=== PATIENT | female | born 2000 | race Caucasian/White ===

== ENCOUNTER 2022-05-07 19:59 | Emergency (ER) | payer OTHER, SELFPAY ==
[2022-05-07] VITALS (9 sets, daily range): BP systolic 129–143; BP diastolic 81–87; PULSE 81–102; RESP 22; TEMP 36.6; O2SAT 95–99
--- NOTE | 2022-05-07 20:27 | ED_ITS ---
HPI - Nausea/Vomiting/Diarrhea General Chief complaint: Nausea/Vomiting/Diarrhea Stated complaint: acid reflux, vomiting four days Time Seen by Provider: 05/07/22 20:18 Source: patient Mode of arrival: Ambulatory History of Present Illness HPI Narrative: 21-year-old female nonsmoker with history of acid reflux and esophageal ulcers presents with a chief complaint of epigastric pain and nausea and vomiting for the past few days. She states her pain is across her upper abdomen and radiates to her back. She states it seems to be worse when she moves as well as eats. She has had poor appetite and multiple episodes of vomiting and feels weak, dizzy and lightheaded. She states she is felt this way in the past when her reflux is acting up. She states she is been taking her medications as prescribed and denies any dietary indiscretions. She is had no diarrhea or constipation denies dysuria, frequency or urgency. Related Data Allergies Allergy/AdvReac Type Severity Reaction Status Date / Time Penicillins Allergy Verified 05/07/22 20:17 Review of Systems Review of Systems Narrative: GENERAL: Denies chills, fatigue, malaise, fever, sweats. HEENT: Denies sinus pain, ear pain, sore throat, difficulty swallowing, dizziness. RESPIRATORY: Denies dyspnea, cough, wheezing, hemoptysis, sputum. CARDIOVASCULAR: Denies chest pain, palpitations, orthopnea, edema, GASTROINTESTINAL: See HPI : Denies dysuria, frequency, incontinence, hematuria, urinary retention. MUSCULOSKELETAL: denies weakness, joint pain, or bony pain SKIN: Denies rash, skin lesions, or other NEUROLOGIC: Denies weakness, headache, numbness, change in speech, confusion, seizures, incoordination. PSYCHIATRIC: No concerning psychosocial issues. 12 point review of systems is negative except for those stated above Patient History tobacco type: vaping Exam Narrative Exam Narrative: GENERAL: [21] year old patient appears stated age. Well-developed patient, in mild distress. HEAD: Atraumatic. Normocephalic. EYES: Pupils equal round and reactive. Extraocular motions intact. No scleral icterus. No injection or drainage. ENT: Nose without bleeding, purulent drainage. Throat without erythema, tonsillar hypertrophy or exudate. Airway patent. NECK: Trachea midline. Non tender CARDIOVASCULAR: Regular rate and rhythm without murmurs, gallops, or rubs. RESPIRATORY: Clear to auscultation. Breath sounds equal bilaterally. No wheezes, rales, or rhonchi. GASTROINTESTINAL: Abdomen soft, tender in the epigastrium, nondistended. EXTREMITIES: No edema or joint tenderness. BACK: Nontender without deformity or crepitance. No flank tenderness. NEURO: AOx3. SKIN: No rash or erythema of visible areas Initial Vital Signs Initial Vital Signs: Vital Signs Temperature 97.9 F 05/07/22 20:15 Pulse Rate 98 H 05/07/22 20:15 Respiratory Rate 22 05/07/22 20:15 Blood Pressure 143/87 H 05/07/22 20:15 Pulse Oximetry 98 05/07/22 20:15 Oxygen Delivery Method 05/07/22 20:15 Course Orders Ordered: ED Orders 05/07/22 20:50 Complete Blood Count AUTO DIFF Stat Comprehensive Metabolic Panel Stat Lipase Stat 05/07/22 21:32 US abdomen limited Stat 05/07/22 23:31 CT abdomen pelvis w con Stat 05/08/22 00:00 COVID19 -Nasal RAPID/Pre-Proc Stat Discontinued Medications Hydromorphone HCl (Hydromorphone 0.5 Mg Inj) 0.5 mg IV NOW ONE Stop: 05/07/22 21:11 Last Admin: 05/07/22 21:29 Dose: 0.5 mg Documented By: NR Hydromorphone HCl (Hydromorphone 0.5 Mg Inj) 0.5 mg IV NOW ONE Stop: 05/07/22 23:32 Last Admin: 05/07/22 23:34 Dose: 0.5 mg Documented By: LEO Sodium Chloride (Normal Saline 0.9%) 1,000 mls @ 1,000 mls/hr IV BOLUS ONE Stop: 05/07/22 22:09 Last Infusion: 05/07/22 23:09 Dose: 0 mls/hr Documented By: Admin: 05/07/22 21:30 Dose: 1,000 mls/hr Documented By: NR Ondansetron HCl (Ondansetron 4 Mg/2 Ml Inj) 4 mg IV NOW ONE Stop: 05/07/22 20:28 Last Admin: 05/07/22 20:49 Dose: 4 mg Documented By: NR Pantoprazole Sodium (Pantoprazole 40 Mg Vial) 40 mg IV NOW ONE Stop: 05/07/22 20:28 Last Admin: 05/07/22 20:49 Dose: 40 mg Documented By: NR Vital Signs Vital signs: Vital Signs - 8 hr 05/07/22 20:15 05/07/22 20:57 05/07/22 20:58 Temperature 97.9 F Pulse Rate 98 H 99 H 102 H Respiratory Rate 22 Blood Pressure 143/87 H Pulse Oximetry 98 99 99 Oxygen Delivery Method Room Air 05/07/22 20:58 05/07/22 21:00 05/07/22 21:30 Temperature Pulse Rate 100 H 91 H Respiratory Rate Blood Pressure 129/81 Pulse Oximetry 98 97 Oxygen Delivery Method 05/07/22 22:00 05/07/22 22:30 05/07/22 23:00 Temperature Pulse Rate 89 89 92 H Respiratory Rate Blood Pressure Pulse Oximetry 97 96 95 Oxygen Delivery Method 05/07/22 23:30 05/08/22 00:00 Temperature Pulse Rate 81 78 Respiratory Rate Blood Pressure Pulse Oximetry 97 93 Oxygen Delivery Method MDM - Nausea/Vomiting/Diarrhea Lab Data Result diagrams: 05/07/22 20:50 05/07/22 20:50 Labs: Lab Results 05/07/22 05/07/22 Range/Units 20:50 20:50 WBC 12.0 H (4.5-11.0) X10^3/uL RBC 4.49 (4.0-5.2) X10^6/uL Hgb 12.7 (12.0-16.0) g/dL Hct 38.9 (36-46) % MCV 86.7 (80-100) fL MCH 28.3 (26-34) PG MCHC 32.7 (30-36) % RDW 13.8 (11.6-14.8) % Plt Count 359 (150-400) X10^3/uL Neut % (Auto) 70.2 (50-75) % Lymph % (Auto) 22.3 L (25-40) % Hubbard % (Auto) 4.9 (3-14) % Eos % (Auto) 2.0 (2-4) % Baso % (Auto) 0.6 (0-2) % Neut # (Auto) 8400 H (0184-9845) /uL Lymph # (Auto) 2700 (9623-8970) /uL Hubbard # (Auto) 600 (0-900) /uL Eos # (Auto) 200 (0-450) /uL Baso # (Auto) 100 (0-100) /uL Sodium 137 (137-145) mmol/L Potassium 4.2 (3.4-5.1) mmol/L Chloride 105 (98-107) mmol/L Carbon Dioxide 24 (22-32) mmol/L BUN 10 (7-17) mg/dL Creatinine 0.59 (0.52-1.04) mg/dL Estimated GFR > 60 (>60) mL/min BUN/Creatinine Ratio 16.9 (6-22) Glucose 100 (70-100) mg/dL Calcium 8.9 (8.4-10.2) mg/dL Total Bilirubin 0.4 (0.2-1.3) mg/dL AST 77 H (14-36) IU/L ALT 44 H (<35) IU/L Alkaline Phosphatase 104 (38-126) U/L Total Protein 7.8 (6.3-8.2) g/dL Albumin 4.6 (3.5-5.0) g/dL Globulin 3.2 (1.7-4.1) g/dL Albumin/Globulin Ratio 1.4 (1.0-2.8) Lipase 93 (23-300) U/L Imaging Data CT scan - abdomen/pelvis: Radiologist's Impression: Close Abdomen/Pelvis CT (Signed) Sylvester Hernandez - 05/07/22 Abdomen Ultrasound (Signed) Sylvester Hernandez - 05/07/22 Launch?[place] [address] CT Scan Report Signed Patient: Donna Silva MR#: [id number] : 2000 Acct:[id number] Age/Sex: 21 / F Date of Service: 05/07/22 Loc: ED Accession Number: [id number] ?? Procedure: CT abdomen pelvis w con Ordering Provider: Santosh Moya D.O. PROCEDURE:? CT ABDOMEN PELVIS W CON ? INDICATIONS:? severe abdominal pain ? TECHNIQUE:? After the administration of intravenous contrast, axial sections acquired from the lung bases to the pubic symphysis.? Coronal and sagittal reformats were performed.? For radiation dose reduction, the following was used:? automated exposure control, adjustment of mA and/or kV according to patient size.? ? COMPARISON:? [facility], , US ABDOMEN LIMITED, 05/07/2022, 22:21. ? FINDINGS:? Image quality:? Excellent.? ? Lung bases:? Unremarkable. Heart:? No significant findings. ? ABDOMEN: Liver:? Hepatomegaly and severe hepatic steatosis is seen, no discrete hepatic lesion.. ? ? Gallbladder:? Unremarkable.? Biliary ducts:? Unremarkable.? ? Pancreas:? Unremarkable.? ? Spleen:? There is mild splenomegaly, no discrete splenic lesion..? ? Adrenal Glands:? Unremarkable.? ? Kidneys and Ureters:? No renal stones or hydronephrosis.? Small bilateral renal cortical cysts are seen measures up to 1 cm in size in midpole of left kidney. ? Stomach and Bowel:? There is no bowel obstruction.? No stomach or small bowel wall thickening.? Appendix is visualized and is normal in size and appearance.? Mild ascending colon wall thickening is seen.? No significant mesenteric fat stranding.? No abscess collection. Peritoneum:? No abnormal intraperitoneal fluid.? No free air.? ? Ventral Wall: ? Small umbilical hernia is seen containing fat only. Abdominal Nodes:? No retroperitoneal or mesenteric adenopathy by size criteria.? Small lymph nodes are seen scattered in right lower quadrant mesentery measures up to 7 mm in size. Vessels:? Aorta and inferior vena cava are normal in size.? ? PELVIS: Pelvic Organs:? Unremarkable.? ? Bladder:? Unremarkable.? ? Pelvic Nodes: No enlarged lymph nodes.? Miscellaneous: No hernias are seen. ? ? ? Bones:? There is no suspicious bony lesion.? No acute vertebral body compression fracture.? Degenerative disc disease at L5-S1 level is seen. ? ? IMPRESSION:? 1. Normal appendix.? Questionable ascending colon wall thickening, low-grade colitis cannot be excluded. 2. Mildly prominent mesenteric lymph nodes particularly in right lower quadrant abdomen which can be seen associated with mesenteric adenitis.? No abscess collection.? No free fluid or free air. 3.? Hepatosplenomegaly.? Moderate to severe hepatic steatosis, no discrete hepatic lesion. ? ? Dictated by: Sylvester Hernandez M.D. on 05/08/2022 at 0:07 ? ? Approved by: Sylvester Hernandez M.D. on 05/08/2022 at 0:13 ? US - abdomen: Radiologist's Impression: Close Abdomen/Pelvis CT (Signed) Sylvester Hernandez - 05/07/22 Abdomen Ultrasound (Signed) Sylvester Hernandez - 05/07/22 Launch?[facility] [address] [address] [address] Scan Report Signed Patient: Donna Silva MR#: [id number] : 2000 Acct:[id number] Age/Sex: 21 / F Date of Service: 05/07/22 Loc: ED Accession Number: [id number] ?? Procedure: CT abdomen pelvis w con Ordering Provider: Santosh Moya D.O. PROCEDURE:? CT ABDOMEN PELVIS W CON ? INDICATIONS:? severe abdominal pain ? TECHNIQUE:? After the administration of intravenous contrast, axial sections acquired from the lung bases to the pubic symphysis.? Coronal and sagittal reformats were performed.? For radiation dose reduction, the following was used:? automated exposure control, adjustment of mA and/or kV according to patient size.? ? COMPARISON:? [facility], , US ABDOMEN LIMITED, 05/07/2022, 22:21. ? FINDINGS:? Image quality:? Excellent.? ? Lung bases:? Unremarkable. Heart:? No significant findings. ? ABDOMEN: Liver:? Hepatomegaly and severe hepatic steatosis is seen, no discrete hepatic lesion.. ? ? Gallbladder:? Unremarkable.? Biliary ducts:? Unremarkable.? ? Pancreas:? Unremarkable.? ? Spleen:? There is mild splenomegaly, no discrete splenic lesion..? ? Adrenal Glands:? Unremarkable.? ? Kidneys and Ureters:? No renal stones or hydronephrosis.? Small bilateral renal cortical cysts are seen measures up to 1 cm in size in midpole of left kidney. ? Stomach and Bowel:? There is no bowel obstruction.? No stomach or small bowel wall thickening.? Appendix is visualized and is normal in size and appearance.? Mild ascending colon wall thickening is seen.? No significant mesenteric fat stranding.? No abscess collection. Peritoneum:? No abnormal intraperitoneal fluid.? No free air.? ? Ventral Wall: ? Small umbilical hernia is seen containing fat only. Abdominal Nodes:? No retroperitoneal or mesenteric adenopathy by size criteria.? Small lymph nodes are seen scattered in right lower quadrant mesentery measures up to 7 mm in size. Vessels:? Aorta and inferior vena cava are normal in size.? ? PELVIS: Pelvic Organs:? Unremarkable.? ? Bladder:? Unremarkable.? ? Pelvic Nodes: No enlarged lymph nodes.? Miscellaneous: No hernias are seen. ? ? ? Bones:? There is no suspicious bony lesion.? No acute vertebral body compression fracture.? Degenerative disc disease at L5-S1 level is seen. ? ? IMPRESSION:? 1. Normal appendix.? Questionable ascending colon wall thickening, low-grade colitis cannot be excluded. 2. Mildly prominent mesenteric lymph nodes particularly in right lower quadrant abdomen which can be seen associated with mesenteric adenitis.? No abscess collection.? No free fluid or free air. 3.? Hepatosplenomegaly.? Moderate to severe hepatic steatosis, no discrete hepatic lesion. ? ? Dictated by: Sylvester Hernandez M.D. on 05/08/2022 at 0:07 ? ? Approved by: Sylvester Hernandez M.D. on 05/08/2022 at 0:13 ? MDM Narrative Medical decision making narrative: Multiple etiologies for patient's symptoms considered include, but not limited to: [Pancreatitis versus gallbladder disease versus Bowel obstruction versus kidney stone versus diverticulitis versus other Patient's symptoms improved over duration of stay with above-stated therapies. History, physical exam, labs, imaging, and response to therapies have been reassuring. Findings and discharge diagnosis discussed with patient/family followed by verbalization of understanding Return precautions discussed with patient/family whom verbalize understanding. Pain has been well controlled and patient is tolerating oral hydration. Discharge Plan Departure Patient Disposition: Home Clinical Impression: Abdominal pain, Acute mesenteric adenitis Instructions: DI for Abdominal Pain-Adult Activity Restrictions/Additional Instructions: *You have been diagnosed with [abdominal pain likely due to mesenteric adenitis.] * As we discussed your history and physical exam as well as labs and imaging are very reassuring. There is no evidence of any severe diagnoses that would require a specific or immediate intervention. Specifically, there is no evidence of gallbladder disease, pancreatitis, bowel obstruction, etc. *What to do: *Please continue to take your regular medications as directed. [x ] New medication prescriptions sent to your pharmacy: [ ] *Please follow up with your primary care provider in 2-3 days, call for an appointment. Let them know you were seen in the Emergency Department and that we ask that you be seen in follow up. We will electronically transmit a record of today's note if your PCP is in our system *Please consider a clear liquid diet for the next 24-48 hours and then slowly advance to regular as tolerated. Also, try to avoid alcohol, nicotine, caffeine, spicy, acidic or fatty foods as this may worsen your symptoms *If you do not have a primary care provider please contact the [facility] Resource line at [phone]. They will ask some questions about your medical history and help get you set up with a doctor in the community. *Return to Emergency Department if you should have any new, worsening or concerning symptoms, such as [fever greater than 101 F, shaking chills, worsening pain, persistent vomiting or other bothersome symptoms]
[2022-05-07] MEDS: PANTOPRAZOLE 40 MG VIAL IV (20:49)
[2022-05-07] MEDS: ONDANSETRON 4 MG/2 ML INJ IV (20:49)
[2022-05-07 21:08] LABS: Add Manual Diff / Slide Review NO; Basophils Absolute Auto 100 /uL (0-100); Basophils Percent Auto 0.6 % (0-2); Eosinophils Absolute Auto 200 /uL (0-450); Hematocrit 38.9 % (36-46); Hemoglobin 12.7 g/dL (12.0-16.0); Lymphocytes Absolute Auto 2700 /uL (1100-4500); Lymphocytes Percent Auto 22.3 % (25-40); Mean Corpuscular HGB Conc 32.7 % (30-36); Mean Corpuscular Hemoglobin 28.3 PG (26-34); Mean Corpuscular Volume 86.7 fL (80-100); Monocytes Absolute Auto 600 /uL (0-900); Monocytes Percent Auto 4.9 % (3-14); Neutrophils Absolute Auto 8400 /uL (1500-7000); Neutrophils Percent Auto 70.2 % (50-75); Platelet Count 359 X10^3/uL (150-400); Red Blood Cell Count 4.49 X10^6/uL (4.0-5.2); Red Cell Distribution Width 13.8 % (11.6-14.8)
[2022-05-07 21:15] LABS: Albumin 4.6 g/dL (3.5-5.0)
[2022-05-07] MEDS: HYDROMORPHONE 0.5 MG INJ IV ×2 (21:29→23:34)
[2022-05-07] MEDS: SODIUM CHLORIDE 0.9% 1,000 ML 1000 ML IV (21:30)
[2022-05-07 21:31] LABS: Alanine Aminotransferase 44 IU/L (<35); Albumin Globulin Ratio 1.4 (1.0-2.8); Alkaline Phosphatase 104 U/L (38-126); Aspartate Aminotransferase 77 IU/L (14-36); BUN Creatinine Ratio 16.9 (6-22); Bilirubin Total 0.4 mg/dL (0.2-1.3); Blood Urea Nitrogen 10 mg/dL (7-17); Calcium 8.9 mg/dL (8.4-10.2); Carbon Dioxide 24 mmol/L (22-32); Chloride 105 mmol/L (98-107); Estimated Glomerular Filt Rate > 60 mL/min (>60); Globulin 3.2 g/dL (1.7-4.1); Glucose 100 mg/dL (70-100); HEMOLYSIS 17 (0-50); Lipase 93 U/L (23-300); Potassium 4.2 mmol/L (3.4-5.1); Sodium 137 mmol/L (137-145); Total Protein 7.8 g/dL (6.3-8.2)
--- NOTE | 2022-05-07 21:32 | DI.US.S_ITS ---
PROCEDURE: US ABDOMEN LIMITED INDICATIONS: severe epigastric pain, radiation to back TECHNIQUE: Real-time scanning was performed of the abdominal and retroperitoneal organs, with image documentation. COMPARISON: None. FINDINGS: Liver: Liver is enlarged and measures 22.6 cm in length. Diffusely increased liver parenchymal echotexture is seen. No discrete hepatic lesion. Gallbladder: There is no gallstone. No gallbladder wall thickening or pericholecystic fluid. No sonographic [place] sign. Biliary ducts: Intrahepatic bile ducts are non-dilated. Extrahepatic bile duct caliber measures 5.6 mm. Normal is 6-7 mm or less in diameter, or 10 mm or less post-cholecystectomy. Pancreas: Visualized portions of the pancreas are sonographically normal. IMPRESSION: Normal appearing gallbladder. No cholelithiasis or acute cholecystitis. No biliary ductal dilatation. Hepatomegaly and hepatic steatosis. No discrete hepatic lesion. Dictated by: Sylvester Hernandez M.D. on 05/07/2022 at 23:12 Approved by: Sylvester Hernandez M.D. on 05/07/2022 at 23:14
--- NOTE | 2022-05-07 23:31 | DI.CT.S_ITS ---
PROCEDURE: CT ABDOMEN PELVIS W CON INDICATIONS: severe abdominal pain TECHNIQUE: After the administration of intravenous contrast, axial sections acquired from the lung bases to the pubic symphysis. Coronal and sagittal reformats were performed. For radiation dose reduction, the following was used: automated exposure control, adjustment of mA and/or kV according to patient size. COMPARISON: [facility], , US ABDOMEN LIMITED, 05/07/2022, 22:21. FINDINGS: Image quality: Excellent. Lung bases: Unremarkable. Heart: No significant findings. ABDOMEN: Liver: Hepatomegaly and severe hepatic steatosis is seen, no discrete hepatic lesion.. Gallbladder: Unremarkable. Biliary ducts: Unremarkable. Pancreas: Unremarkable. Spleen: There is mild splenomegaly, no discrete splenic lesion.. Adrenal Glands: Unremarkable. Kidneys and Ureters: No renal stones or hydronephrosis. Small bilateral renal cortical cysts are seen measures up to 1 cm in size in midpole of left kidney. Stomach and Bowel: There is no bowel obstruction. No stomach or small bowel wall thickening. Appendix is visualized and is normal in size and appearance. Mild ascending colon wall thickening is seen. No significant mesenteric fat stranding. No abscess collection. Peritoneum: No abnormal intraperitoneal fluid. No free air. Ventral Wall: Small umbilical hernia is seen containing fat only. Abdominal Nodes: No retroperitoneal or mesenteric adenopathy by size criteria. Small lymph nodes are seen scattered in right lower quadrant mesentery measures up to 7 mm in size. Vessels: Aorta and inferior vena cava are normal in size. PELVIS: Pelvic Organs: Unremarkable. Bladder: Unremarkable. Pelvic Nodes: No enlarged lymph nodes. Miscellaneous: No hernias are seen. Bones: There is no suspicious bony lesion. No acute vertebral body compression fracture. Degenerative disc disease at L5-S1 level is seen. IMPRESSION: 1. Normal appendix. Questionable ascending colon wall thickening, low-grade colitis cannot be excluded. 2. Mildly prominent mesenteric lymph nodes particularly in right lower quadrant abdomen which can be seen associated with mesenteric adenitis. No abscess collection. No free fluid or free air. 3. Hepatosplenomegaly. Moderate to severe hepatic steatosis, no discrete hepatic lesion. Dictated by: Sylvester Hernandez M.D. on 05/08/2022 at 0:07 Approved by: Sylvester Hernandez M.D. on 05/08/2022 at 0:13
[2022-05-08] VITALS: PULSE 78; O2SAT 93
[2022-05-08 00:27] LABS: COVID19 -Nasal RAPID Negative (Negative)
[2022-05-08] MEDS: ONDANSETRON 4 MG ODT PREPACK 1 BOTTLE MISC (00:45)
[2022-05-08] MEDS: HYDROCODONE/ACET 5/325 PREPACK 1 BOTTLE MISC (00:45)
== END 2022-05-08 00:43 | disposition home or self-care (01) ==
PROVIDERS: Emergency Provider Emergency Medicine
DX: R10.13 Epigastric pain (principal); I88.0 Nonspecific mesenteric lymphadenitis; R11.2 Nausea with vomiting, unspecified; Z20.822 Contact with and (suspected) exposure to COVID-19
CPT/HCPCS: 36415; 74177; 76705; 80053; 83690; 85025; 87635; 96361; 96374; 96375; 96376; 99284; C9803; C9113; J1170; J2405; Q9967

== ENCOUNTER 2022-05-14 09:22 | Emergency (ER) | payer OTHER, SELFPAY ==
[2022-05-14] VITALS (13 sets, daily range): BP systolic 95–135; BP diastolic 57–102; PULSE 68–94; RESP 16–23; TEMP 36.7; O2SAT 92–97
[2022-05-14 09:55] LABS: Add Manual Diff / Slide Review NO; Basophils Absolute Auto 0 /uL (0-100); Basophils Percent Auto 0.5 % (0-2); Eosinophils Absolute Auto 100 /uL (0-450); Eosinophils Percent Auto 1.8 % (2-4); Hematocrit 36.7 % (36-46); Hemoglobin 12.4 g/dL (12.0-16.0); Lymphocytes Absolute Auto 1900 /uL (1100-4500); Lymphocytes Percent Auto 22.5 % (25-40); Mean Corpuscular HGB Conc 33.7 % (30-36); Mean Corpuscular Hemoglobin 29.2 PG (26-34); Mean Corpuscular Volume 86.6 fL (80-100); Monocytes Absolute Auto 500 /uL (0-900); Monocytes Percent Auto 6.4 % (3-14); Neutrophils Absolute Auto 5800 /uL (1500-7000); Neutrophils Percent Auto 68.8 % (50-75); Platelet Count 304 X10^3/uL (150-400); Red Blood Cell Count 4.24 X10^6/uL (4.0-5.2); Red Cell Distribution Width 13.3 % (11.6-14.8); White Blood Cell Count 8.4 X10^3/uL (4.5-11.0)
--- NOTE | 2022-05-14 10:02 | ED_ITS ---
HPI - Abdominal Pain General Chief Complaint: Abdominal Pain Stated Complaint: Abd pain Time Seen by Provider: 05/14/22 09:34 Source: patient and EMS Mode of arrival: EMS History of Present Illness HPI narrative: Patient is a 21-year-old female with history of depression anxiety presenting today with suprapubic pain. She was here and evaluated on 05/07/2022 when she had some epigastric pain. At that time she was diagnosed with mesenteric adenitis with normal blood work. She was discharged home and was doing okay until this morning when she had sudden onset of suprapubic pain. She says it radiates from her suprapubic area up to her chest. She sometimes gets short of breath but is not right now. She no longer has chest pain. She is complaining of severe pain. She denies painful or frequent urination. No abnormal vaginal discharge. No significant vaginal bleeding. She was given morphine with EMS and is feeling slightly better. She denies any flank pain or radiation. No epigastric or right upper quadrant pain. Related Data Previous Rx's Medication Instructions Recorded hydrocodone 5 mg-acetaminophen 325 1 tab PO Q4-6H PRN pain #10 tabs 05/08/22 mg tablet ondansetron 4 mg disintegrating 4 mg PO TID-QID PRN nausea and 05/08/22 tablet vomiting #10 tabs Allergies Allergy/AdvReac Type Severity Reaction Status Date / Time amoxicillin Allergy Verified 05/14/22 09:37 bismuth subsalicylate Allergy Verified 05/14/22 09:37 [From Maalox Total Relief (bismuth)] cinnamon Allergy Verified 05/14/22 09:37 Penicillins Allergy Verified 05/07/22 20:17 Review of Systems Review of Systems Narrative: GENERAL: Denies chills, fatigue, malaise, fever, sweats, travel HEENT: Denies sinus pain, ear pain, sore throat, difficulty swallowing, neck pain RESPIRATORY: Denies dyspnea, cough, wheezing, hemoptysis, sputum. CARDIOVASCULAR: Denies chest pain, palpitations, orthopnea, edema GASTROINTESTINAL: See HPI : Denies dysuria, frequency, incontinence, hematuria, urinary retention, flank pain. MUSCULOSKELETAL: Denies weakness, joint pain, or bony pain SKIN: No rash, no erythema, no pruritus NEUROLOGIC: Denies weakness, dizziness, headache, numbness, change in speech, confusion PSYCHIATRIC: No concerning psychosocial issues. 12 point review of systems is negative except for those stated above and HPI Patient History Social History Smoking Status: Former smoker Smoking Status: Former smoker tobacco type: vaping alcohol intake frequency: holidays/special occasions only Substance Use Type: marijuana Exam Initial Vital Signs Initial Vital Signs: Vital Signs Pulse Rate 94 H 05/14/22 09:24 Pulse Oximetry 96 05/14/22 09:24 GENERAL: Obese 21-year-old female and in no acute distress. HEENT: Head atraumatic,EOMI, pupils reactive, face symmetric, moist mucous membranes CARDIOVASCULAR: Regular rate and rhythm without murmurs, rubs or gallops. RESPIRATORY: Breath sounds equal bilaterally, no wheezes rales or rhonchi. ABDOMEN: Soft, suprapubic pain no guarding no rebound no epigastric pain no right upper quadrant : No CVA tenderness EXTREMITIES: Normal range of motion, no clubbing or edema. Neurovascularly intact NEUROLOGICAL: Alert and oriented x4.Normal gait and speech. SKIN: Warm, dry, no laceration, no petechiae, no rashes or lesions. Course Orders Ordered: ED Orders 05/14/22 09:33 EKG-12 Lead Stat 05/14/22 09:45 Complete Blood Count AUTO DIFF Stat Comprehensive Metabolic Panel Stat Lipase Stat Magnesium Stat Test Serum,Qual Stat Troponin & CK Cardiac Panel Stat 05/14/22 11:07 COVID19 -Nasal RAPID/Pre-Proc Stat 05/14/22 11:42 CT abdomen pelvis wo con Stat Discontinued Medications Hydromorphone HCl (Hydromorphone 1 Mg Inj) 1 mg IV NOW ONE Stop: 05/14/22 11:43 Last Admin: 05/14/22 12:13 Dose: 1 mg Documented By: RLS Ketorolac Tromethamine (Ketorolac 30 Mg/Ml Vial) 15 mg IV NOW ONE Stop: 05/14/22 10:03 Last Admin: 05/14/22 10:54 Dose: 15 mg Documented By: CSD Magnesium Citrate (Magnesium Citrate 300 Ml Solution) 300 ml PO NOW ONE Stop: 05/14/22 13:01 Last Admin: 05/14/22 13:25 Dose: 300 ml Documented By: AT Vital Signs Vital signs: Vital Signs - 8 hr 05/14/22 09:33 05/14/22 09:24 05/14/22 09:27 Temperature 98.0 F Pulse Rate 94 H Respiratory Rate Blood Pressure 129/72 Pulse Oximetry 96 Oxygen Delivery Method 05/14/22 09:27 05/14/22 09:30 05/14/22 09:30 Temperature Pulse Rate 89 87 Respiratory Rate 22 Blood Pressure 128/71 Pulse Oximetry 97 96 Oxygen Delivery Method 05/14/22 10:00 05/14/22 10:00 05/14/22 10:30 Temperature Pulse Rate 75 Respiratory Rate 18 Blood Pressure 118/58 L 121/83 Pulse Oximetry 94 Oxygen Delivery Method 05/14/22 10:30 05/14/22 11:00 05/14/22 11:00 Temperature Pulse Rate 86 71 Respiratory Rate 23 17 Blood Pressure 135/102 H Pulse Oximetry 97 95 Oxygen Delivery Method 05/14/22 11:03 05/14/22 11:03 05/14/22 11:30 Temperature Pulse Rate 83 Respiratory Rate 20 Blood Pressure 127/90 116/73 Pulse Oximetry 95 Oxygen Delivery Method 05/14/22 11:30 05/14/22 12:07 05/14/22 12:16 Temperature Pulse Rate 68 81 86 Respiratory Rate 17 16 21 Blood Pressure Pulse Oximetry 95 92 96 Oxygen Delivery Method Room Air 05/14/22 12:16 05/14/22 12:30 05/14/22 12:30 Temperature Pulse Rate 77 Respiratory Rate 22 Blood Pressure 101/57 L 96/61 Pulse Oximetry 93 Oxygen Delivery Method 05/14/22 13:00 05/14/22 13:00 Temperature Pulse Rate 77 Respiratory Rate 21 Blood Pressure 95/62 Pulse Oximetry 95 Oxygen Delivery Method MDM - Abdominal Pain Lab Data Result diagrams: 05/14/22 09:45 05/14/22 09:45 Labs: Lab Results 05/14/22 05/14/22 05/14/22 Range/Units 09:45 09:45 09:45 WBC 8.4 (4.5-11.0) X10^3/uL RBC 4.24 (4.0-5.2) X10^6/uL Hgb 12.4 (12.0-16.0) g/dL Hct 36.7 (36-46) % MCV 86.6 (80-100) fL MCH 29.2 (26-34) PG MCHC 33.7 (30-36) % RDW 13.3 (11.6-14.8) % Plt Count 304 (150-400) X10^3/uL Neut % (Auto) 68.8 (50-75) % Lymph % (Auto) 22.5 L (25-40) % [place] % (Auto) 6.4 (3-14) % Eos % (Auto) 1.8 L (2-4) % Baso % (Auto) 0.5 (0-2) % Neut # (Auto) 5800 (6446-0297) /uL Lymph # (Auto) 1900 (7274-7181) /uL [place] # (Auto) 500 (0-900) /uL Eos # (Auto) 100 (0-450) /uL Baso # (Auto) 0 (0-100) /uL Sodium 137 (137-145) mmol/L Potassium 4.2 (3.4-5.1) mmol/L Chloride 105 (98-107) mmol/L Carbon Dioxide 27 (22-32) mmol/L BUN 13 (7-17) mg/dL Creatinine 0.66 (0.52-1.04) mg/dL Estimated GFR > 60 (>60) mL/min BUN/Creatinine Ratio 19.7 (6-22) Glucose 109 H (70-100) mg/dL Calcium 8.8 (8.4-10.2) mg/dL Magnesium 1.9 (1.6-2.3) mg/dL Total Bilirubin 0.4 (0.2-1.3) mg/dL AST 66 H (14-36) IU/L ALT 38 H (<35) IU/L Alkaline Phosphatase 87 (38-126) U/L Total Creatine Kinase 34 (30-135) U/L CK-MB (CK-2) TNP CK-MB (CK-2) Rel Index TNP Troponin I < 0.012 (0.01-0.034) ng/mL Total Protein 7.2 (6.3-8.2) g/dL Albumin 4.2 (3.5-5.0) g/dL Globulin 3.0 (1.7-4.1) g/dL Albumin/Globulin Ratio 1.4 (1.0-2.8) Lipase 80 (23-300) U/L Serum , Qual Negative (Negative) SARS-CoV-2 (PCR) (Negative) 05/14/22 Range/Units 11:07 WBC (4.5-11.0) X10^3/uL RBC (4.0-5.2) X10^6/uL Hgb (12.0-16.0) g/dL Hct (36-46) % MCV (80-100) fL MCH (26-34) PG MCHC (30-36) % RDW (11.6-14.8) % Plt Count (150-400) X10^3/uL Neut % (Auto) (50-75) % Lymph % (Auto) (25-40) % [place] % (Auto) (3-14) % Eos % (Auto) (2-4) % Baso % (Auto) (0-2) % Neut # (Auto) (1232-3837) /uL Lymph # (Auto) (7863-6782) /uL [place] # (Auto) (0-900) /uL Eos # (Auto) (0-450) /uL Baso # (Auto) (0-100) /uL Sodium (137-145) mmol/L Potassium (3.4-5.1) mmol/L Chloride (98-107) mmol/L Carbon Dioxide (22-32) mmol/L BUN (7-17) mg/dL Creatinine (0.52-1.04) mg/dL Estimated GFR (>60) mL/min BUN/Creatinine Ratio (6-22) Glucose (70-100) mg/dL Calcium (8.4-10.2) mg/dL Magnesium (1.6-2.3) mg/dL Total Bilirubin (0.2-1.3) mg/dL AST (14-36) IU/L ALT (<35) IU/L Alkaline Phosphatase (38-126) U/L Total Creatine Kinase (30-135) U/L CK-MB (CK-2) CK-MB (CK-2) Rel Index Troponin I (0.01-0.034) ng/mL Total Protein (6.3-8.2) g/dL Albumin (3.5-5.0) g/dL Globulin (1.7-4.1) g/dL Albumin/Globulin Ratio (1.0-2.8) Lipase (23-300) U/L Serum , Qual (Negative) SARS-CoV-2 (PCR) Negative (Negative) Imaging Data CT scan - abdomen/pelvis: Radiologist's Impression: Signed Patient: Donna Silva MR#: [id number] : 2000 Acct:[id number] Age/Sex: 21 / F Date of Service: 05/14/22 Loc: ED Accession Number: [id number] ?? Procedure: CT abdomen pelvis wo con Ordering Provider: Ritika García D.O. PROCEDURE:? CT ABDOMEN PELVIS WO CON ? INDICATIONS:? Continued suprapubic pain ? TECHNIQUE:? Noncontrast 5 mm thick sections acquired from the diaphragms to the symphysis.? 5 mm coronal and sagittal reformats were then performed.? For radiation dose reduction, the following was used:? automated exposure control, adjustment of mA and/or kV according to patient size.? ? COMPARISON:? [facility], CT, CT ABDOMEN PELVIS W CON, 05/07/2022, 23:53. ? FINDINGS:? Image quality:? Excellent.? ? ABDOMEN:? Lung bases:? Lung bases are clear.? Heart size is normal.? ? Solid organs:? Again noted is a paddle megaly and moderate to severe diffuse hepatic steatosis.? Findings are unchanged.? Gallbladder is unremarkable .? Pancreas is normal in contours.? Spleen is normal in size.? It measures 11.5 cm in length.? No adrenal nodules. ?Kidneys are normal in size, without hydronephrosis or nephrolithiasis.? ? Peritoneum and bowel:? Unenhanced bowel loops demonstrate normal wall thickness and caliber.? No free fluid or air.? Moderate right colonic fecal debris is present.? Since the previous study, the terminal ileum has developed distension secondary to fecalized material. ? Nodes and vessels:? No retroperitoneal or mesenteric adenopathy by size criteria.? Aorta and inferior vena cava are normal in caliber.? ? Miscellaneous:? No ventral hernias.? ? ? PELVIS:? Genitourinary:? Bladder wall thickness is normal.? ? Miscellaneous:? No inguinal hernias or adenopathy.? ? Bones:? No suspicious bony lesions.? No vertebral body compression fractures.? ? IMPRESSION:? ? 1. Constipation with distension of the terminal ileum by fecal material. ? 2. Hepatomegaly, diffuse hepatic steatosis.? ? 3. No evidence of acute abdominal process. ? ? Dictated by: Mitch Wyatt M.D. on 05/14/2022 at 11:4 MDM Narrative Medical decision making narrative: Patient is here today with suprapubic pain. Blood work is overall reassuring. CT shows resolution of previous mesenteric adenitis but does show new onset constipation. Patient states that she did have a bowel movement last night. Pain was significantly worse this. She has been constipated in the past she is allergic to some MiraLax but states magnesium citrate helps her. Discharge Plan Departure Patient Disposition: Home Clinical Impression: Constipation Instructions: DI for Constipation Activity Restrictions/Additional Instructions: *You have been diagnosed with constipation *What to do: At this time your CT and blood work were reassuring. The lymph nodes that were previously swollen are better. Your CT today shows constipation. *Continue to take medications as directed Magnesium citrate 1 bottle as needed for constipation *Follow up with your primary care provider in 2-3 days or call [phone] *Return to ER if you should have increasing abdominal pain persistent vomiting, fever greater than 100.4 or any new, worsening or concerning symptoms Prescriptions: No Action hydrocodone-acetaminophen 5-325 mg tablet 1 tab PO Q4-6H PRN (Reason: pain) Qty: 10 0RF ondansetron 4 mg tablet,disintegrating 4 mg PO TID-QID PRN (Reason: nausea and vomiting) Qty: 10 0RF Visit Report Forms: Patient Portal/API
[2022-05-14 10:07] LABS: Alanine Aminotransferase 38 IU/L (<35); Albumin 4.2 g/dL (3.5-5.0); Albumin Globulin Ratio 1.4 (1.0-2.8); Alkaline Phosphatase 87 U/L (38-126); Aspartate Aminotransferase 66 IU/L (14-36); BUN Creatinine Ratio 19.7 (6-22); Bilirubin Total 0.4 mg/dL (0.2-1.3); Blood Urea Nitrogen 13 mg/dL (7-17); Calcium 8.8 mg/dL (8.4-10.2); Carbon Dioxide 27 mmol/L (22-32); Chloride 105 mmol/L (98-107); Creatine Kinase 34 U/L (30-135); Estimated Glomerular Filt Rate > 60 mL/min (>60); Glucose 109 mg/dL (70-100); HEMOLYSIS < 15 (0-50); Lipase 80 U/L (23-300); Magnesium 1.9 mg/dL (1.6-2.3); Potassium 4.2 mmol/L (3.4-5.1); Sodium 137 mmol/L (137-145); Total Protein 7.2 g/dL (6.3-8.2)
[2022-05-14 10:18] LABS: Troponin I < 0.012 ng/mL (0.01-0.034)
[2022-05-14] MEDS: KETOROLAC 30 MG/ML VIAL 15 MG IV (10:54)
--- NOTE | 2022-05-14 11:42 | DI.CT.S_ITS ---
PROCEDURE: CT ABDOMEN PELVIS WO CON INDICATIONS: Continued suprapubic pain TECHNIQUE: Noncontrast 5 mm thick sections acquired from the diaphragms to the symphysis. 5 mm coronal and sagittal reformats were then performed. For radiation dose reduction, the following was used: automated exposure control, adjustment of mA and/or kV according to patient size. COMPARISON: [facility], CT, CT ABDOMEN PELVIS W CON, 05/07/2022, 23:53. FINDINGS: Image quality: Excellent. ABDOMEN: Lung bases: Lung bases are clear. Heart size is normal. Solid organs: Again noted is a paddle megaly and moderate to severe diffuse hepatic steatosis. Findings are unchanged. Gallbladder is unremarkable . Pancreas is normal in contours. Spleen is normal in size. It measures 11.5 cm in length. No adrenal nodules. Kidneys are normal in size, without hydronephrosis or nephrolithiasis. Peritoneum and bowel: Unenhanced bowel loops demonstrate normal wall thickness and caliber. No free fluid or air. Moderate right colonic fecal debris is present. Since the previous study, the terminal ileum has developed distension secondary to fecalized material. Nodes and vessels: No retroperitoneal or mesenteric adenopathy by size criteria. Aorta and inferior vena cava are normal in caliber. Miscellaneous: No ventral hernias. PELVIS: Genitourinary: Bladder wall thickness is normal. Miscellaneous: No inguinal hernias or adenopathy. Bones: No suspicious bony lesions. No vertebral body compression fractures. IMPRESSION: 1. Constipation with distension of the terminal ileum by fecal material. 2. Hepatomegaly, diffuse hepatic steatosis. 3. No evidence of acute abdominal process. Dictated by: Mitch Wyatt M.D. on 05/14/2022 at 11:46 Approved by: Mitch Wyatt M.D. on 05/14/2022 at 11:50
[2022-05-14 11:56] LABS: Pregnancy Test Serum,Qual Negative (Negative)
[2022-05-14 11:57] LABS: COVID19 -Nasal RAPID Negative (Negative)
[2022-05-14] MEDS: HYDROMORPHONE 1 MG INJ IV (12:13)
[2022-05-14] MEDS: MAGNESIUM CITRATE 300 ML SOLUTION PO (13:25)
== END 2022-05-14 13:38 | disposition home or self-care (01) ==
PROVIDERS: Emergency Provider Emergency Medicine
DX: K59.00 Constipation, unspecified (principal); Z20.822 Contact with and (suspected) exposure to COVID-19
CPT/HCPCS: 36415; 74176; 80053; 82550; 83690; 83735; 84484; 84703; 85025; 87635; 93005; 96374; 96375; 99284; C9803; J1170; J1885

== ENCOUNTER 2022-05-28 12:21 | Emergency (ER) | payer OTHER, SELFPAY ==
[2022-05-28 12:30] VITALS: BP 138/89; PULSE 63; RESP 20; TEMP 36.3; O2SAT 98; BMI 54.1
--- NOTE | 2022-05-28 12:34 | DI.RAD.S_ITS ---
PROCEDURE: XR ANKLE RT MIN 3V INDICATIONS: pain TECHNIQUE: 3 views of the ankle were acquired. COMPARISON: None. FINDINGS: Bones: No fractures or dislocations. Ankle mortise is normally aligned. No suspicious bony lesions. The talar dome demonstrates no billy abnormality. Incidental note is made of an accessory ossicle, an os peroneum. Soft tissues: Generalized soft tissue swelling is seen. IMPRESSION: Soft tissue swelling is seen, without an acute bony abnormality seen by plain film. If there is point tenderness (or other clinical suspicion for a fracture not seen on these images) then a dedicated CT or a short-term followup plain film series could be considered for further evaluation, as clinically appropriate. Dictated by: Aravind Robbins M.D. on 05/28/2022 at 11:57 Approved by: Aravind Robbins M.D. on 05/28/2022 at 11:58
--- NOTE | 2022-05-28 13:52 | ED.EXTPRO ---
HPI - Extremity Problem General Chief complaint: Extremity Problem,Nontraumatic Stated complaint: right ankle pain, unable to walk on it Time Seen by Provider: 05/28/22 13:22 Source: patient Mode of arrival: Family Vehicle History of Present Illness HPI Narrative: Patient is a 21-year-old female with history of depression anxiety obesity presenting today for right ankle pain ongoing for last 4 days. She does not remember injuring it. She now is having increased difficulty ambulating and weight bearing. She feels like when she puts weight down it goes all around her ankle and up into her leg. No other injuries. She has been taking ibuprofen at home without any relief. Related Data Previous Rx's Medication Instructions Recorded hydrocodone 5 mg-acetaminophen 325 1 tab PO Q4-6H PRN pain #10 tabs 05/08/22 mg tablet ondansetron 4 mg disintegrating 4 mg PO TID-QID PRN nausea and 05/08/22 tablet vomiting #10 tabs Allergies Allergy/AdvReac Type Severity Reaction Status Date / Time amoxicillin Allergy Verified 05/14/22 09:37 bismuth subsalicylate Allergy Verified 05/14/22 09:37 [From Maalox Total Relief (bismuth)] cinnamon Allergy Verified 05/14/22 09:37 Penicillins Allergy Verified 05/07/22 20:17 Review of Systems Review of Systems Narrative: GENERAL: Denies chills,fever HEENT: Denies throat pain RESPIRATORY: Denies dyspnea, cough, wheezing CARDIOVASCULAR: Denies chest pain, palpitations GASTROINTESTINAL: Denies nausea, vomiting MUSCULOSKELETAL: See HPI SKIN: No rash, no laceration, no pruritus NEUROLOGIC: Denies weakness, dizziness, headache, numbness 8 point review of systems is negative except for those stated above and HPI Patient History Social History Smoking Status: Former smoker Smoking Status: Former smoker tobacco type: cigarettes and vaping alcohol intake frequency: holidays/special occasions only Substance Use Type: marijuana Exam Initial Vital Signs Initial Vital Signs: Vital Signs Temperature 97.4 F L 05/28/22 12:30 Pulse Rate 63 05/28/22 12:30 Respiratory Rate 20 05/28/22 12:30 Blood Pressure 138/89 05/28/22 12:30 Pulse Oximetry 98 05/28/22 12:30 Oxygen Delivery Method 05/28/22 12:30 GENERAL: Alert 21-year-old female BMI 54 CARDIOVASCULAR: peripheral pulses in tact, cap refill <2 sec RESPIRATORY: No respiratory distress, speaks in full sentences without difficulty EXTREMITIES: Normal range of motion, no clubbing or edema. Neurovascularly intact Minimal swelling noted around right ankle distal pedal pulses felt foot is stable and nontender NEUROLOGICAL: Cranial nerves II through XII grossly intact. Normal gait and speech. SKIN: Warm, dry, no petechiae, no rashes or lesions. Course Orders Ordered: ED Orders 05/28/22 12:34 XR ankle RT min 3V Stat Vital Signs Vital signs: Vital Signs - 8 hr 05/28/22 12:30 Temperature 97.4 F L Pulse Rate 63 Respiratory Rate 20 Blood Pressure 138/89 Pulse Oximetry 98 Oxygen Delivery Method Room Air MDM - Extremity (Nontraumatic) Imaging Data Extremity x-ray #1: Radiologist's Impression: XRay Report Signed Patient: Donna Silva MR#: [id number] : 2000 Acct:[id number] Age/Sex: 21 / F Date of Service: 05/28/22 Loc: ED Accession Number: [id number] ?? Procedure: XR ankle RT min 3V Ordering Provider: Ritika García D.O. PROCEDURE:? XR ANKLE RT MIN 3V ? INDICATIONS:? pain ? TECHNIQUE:? 3 views of the ankle were acquired.? ? COMPARISON:? None. ? FINDINGS:? ? Bones:? No fractures or dislocations.? Ankle mortise is normally aligned.? No suspicious bony lesions.? The talar dome demonstrates no billy abnormality.? Incidental note is made of an accessory ossicle, an os peroneum.? ? Soft tissues:? Generalized soft tissue swelling is seen. ? ? IMPRESSION:? Soft tissue swelling is seen, without an acute bony abnormality seen by plain film. ? If there is point tenderness (or other clinical suspicion for a fracture not seen on these images) then a dedicated CT or a short-term followup plain film series could be considered for further evaluation, as clinically appropriate. ? Dictated by: Aravind Robbins M.D. on 05/28/2022 at 11:57 ? ? MDM Narrative Medical decision making narrative: The patient has some mild swelling x-ray is negative. She is given crutches and [place] wrap. Supportive care only. She really denies any injury. Discharge Plan Departure Patient Disposition: Home Clinical Impression: Ankle sprain Instructions: Ankle Sprain Activity Restrictions/Additional Instructions: *You have been diagnosed with right ankle sprain *What to do: At this time use crutches as needed. Elevate and ice. Try ankle brace *Continue to take medications as directed Ibuprofen 600 mg every 6 hours if needed for [id number] pain Tylenol 1000 mg every 6 hours if needed for [id number] *Follow up with your primary care provider in 2-3 days or call [phone] *Return to ER if you should have increasing pain swelling redness or any new, worsening or concerning symptoms Prescriptions: No Action hydrocodone-acetaminophen 5-325 mg tablet 1 tab PO Q4-6H PRN (Reason: pain) Qty: 10 0RF ondansetron 4 mg tablet,disintegrating 4 mg PO TID-QID PRN (Reason: nausea and vomiting) Qty: 10 0RF Visit Report Forms: Patient Portal/API
== END 2022-05-28 14:10 | disposition home or self-care (01) ==
PROVIDERS: Emergency Provider Emergency Medicine
DX: S93.401A Sprain of unspecified ligament of right ankle, initial encounter (principal)
CPT/HCPCS: 73610; 99283

== ENCOUNTER 2022-06-22 08:37 | Emergency (ER) | payer OTHER, SELFPAY ==
[2022-06-22 08:51] VITALS: BP 126/77; PULSE 85; RESP 16; TEMP 36.9; O2SAT 98; BMI 122.7
--- NOTE | 2022-06-22 10:28 | ED_ITS ---
HPI - Extremity Problem General Chief complaint: Extremity Problem,Nontraumatic Stated complaint: Thinks infection in left big toe Time Seen by Provider: 06/22/22 10:19 Source: patient Mode of arrival: Ambulatory History of Present Illness HPI Narrative: Patient here for pain and swelling to the left great toe. Patient states has been trying to treat at home ingrown toenail that was improving but now got worse. History of ingrown toenails on both feet in the past with surgical intervention. No fever chills. No drainage from the toe. Patient denies does not want a test. Related Data Previous Rx's Medication Instructions Recorded hydrocodone 5 mg-acetaminophen 325 1 tab PO Q4-6H PRN pain #10 tabs 05/08/22 mg tablet ondansetron 4 mg disintegrating 4 mg PO TID-QID PRN nausea and 05/08/22 tablet vomiting #10 tabs doxycycline hyclate 100 mg capsule 100 mg PO BID #14 caps 06/22/22 Allergies Allergy/AdvReac Type Severity Reaction Status Date / Time amoxicillin Allergy Verified 05/14/22 09:37 bismuth subsalicylate Allergy Verified 05/14/22 09:37 [From Maalox Total Relief (bismuth)] cinnamon Allergy Verified 05/14/22 09:37 Penicillins Allergy Verified 05/07/22 20:17 Review of Systems Review of Systems Narrative: GENERAL: Denies chills, fatigue, malaise, fever, sweats. HEENT: Denies sinus pain, ear pain, sore throat RESPIRATORY: Denies dyspnea, cough CARDIOVASCULAR: Denies chest pain, palpitations GASTROINTESTINAL: Denies nausea, vomiting, abdominal pain : Denies dysuria, frequency, hematuria MUSCULOSKELETAL: denies muscle or bony pain SKIN: Denies rash, skin lesions positive for edema/erythema NEUROLOGIC: Denies weakness, numbness ROS Unobtainable: All systems reviewed & are unremarkable except as noted in HPI and below Patient History Social History Smoking Status: Former smoker Smoking Status: Former smoker tobacco type: cigarettes and vaping alcohol intake frequency: holidays/special occasions only Substance Use Type: marijuana Exam Narrative Exam Narrative: GENERAL: in no distress, not toxic not dyspneic HEAD: Normocephalic. EYES: Pupils equal round No scleral icterus. EXTREMITIES: No gross deformities. Examination left foot. At the medial aspect of the left great toe/toenail there is erythema edema. Tender to touch. No red streaking. No fluctuance. Toenail was intact. No bleeding. No oozing or drainage NEURO: AOx4. SKIN: Warm and dry PSYCH: Not anxious, is cooperative Initial Vital Signs Initial Vital Signs: Vital Signs Temperature 98.5 F 06/22/22 08:51 Pulse Rate 85 06/22/22 08:51 Respiratory Rate 16 06/22/22 08:51 Blood Pressure 126/77 06/22/22 08:51 Pulse Oximetry 98 06/22/22 08:51 Oxygen Delivery Method 06/22/22 08:51 Course Course Course Narrative: No new issues during course of stay Orders Ordered: Discontinued Medications Doxycycline Hyclate (Doxycycline Hyclate 100 Mg Tablet) 100 mg PO NOW ONE Stop: 06/22/22 10:28 Last Admin: 06/22/22 10:42 Dose: 100 mg Documented By: RAVINDER Reevaluation(s) Reevaluation #1: Patient desires referral for Podiatry. Her last podiatry visit was in [place]. Return precautions reviewed with patient. She desires discharge home Time: 10:33 Vital Signs Vital signs: Vital Signs - 8 hr 06/22/22 10:38 Pulse Rate 86 Respiratory Rate 16 Blood Pressure 115/73 Pulse Oximetry 98 Oxygen Delivery Method Room Air MDM - Extremity (Nontraumatic) Differential Diagnosis Differential diagnosis: Likely cellulitis and other (Paronychia/ingrown toenail) MDM Narrative Medical decision making narrative: Appropriate for discharge home. Exam reassuring. No immediate urgent toenail removal needed. Appropriate for outpatient podiatry services. Patient agrees with treatment plan. Antibiotics provided. Return precautions reviewed with her. Discharge Plan Departure Patient Disposition: Home Clinical Impression: Ingrowing toenail of left foot Instructions: DI for Ingrown Toenail Activity Restrictions/Additional Instructions: Call provided podiatry office today to make appointment for your ingrown toenail. Continue Epsom salt toe soaks 20 minutes at a time 3 times a day. Continue doxycycline antibiotic that has been prescribed and sent to your pharmacy. May continue ibuprofen or Tylenol for pain. Return if worse if any questions or concerns Prescriptions: New doxycycline hyclate 100 mg capsule 100 mg PO BID Qty: 14 0RF No Action hydrocodone-acetaminophen 5-325 mg tablet 1 tab PO Q4-6H PRN (Reason: pain) Qty: 10 0RF ondansetron 4 mg tablet,disintegrating 4 mg PO TID-QID PRN (Reason: nausea and vomiting) Qty: 10 0RF Referrals: Amanda East DPM [Physician] - Visit Report Forms: Patient Portal/API
[2022-06-22 10:38] VITALS: BP 115/73; PULSE 86; RESP 16; O2SAT 98
[2022-06-22] MEDS: DOXYCYCLINE HYCLATE 100 MG TABLET PO (10:42)
== END 2022-06-22 10:47 | disposition home or self-care (01) ==
PROVIDERS: Emergency Provider Emergency Medicine
DX: L60.0 Ingrowing nail (principal)
CPT/HCPCS: 99283

== ENCOUNTER 2022-07-08 13:43 | Emergency (ER) | payer OTHER, SELFPAY ==
[2022-07-08 14:13] VITALS: BP 125/91; PULSE 98; RESP 20; TEMP 35.9; O2SAT 96; BMI 55.2
--- NOTE | 2022-07-08 14:24 | DI.RAD.S_ITS ---
PROCEDURE: XR CHEST 2V INDICATIONS: Respiratory Symptoms TECHNIQUE: 2 views of the chest were acquired. COMPARISON: None. FINDINGS: Surgical changes and devices: None. Lungs and pleura: Lungs are clear. No pleural effusions or pneumothorax. Mediastinum: Mediastinal contours are normal. Heart size is normal. Bones and chest wall: No suspicious bony abnormalities. Soft tissues appear unremarkable. IMPRESSION: No acute cardiopulmonary abnormality. Dictated by: Adam Lopez M.D. on 07/08/2022 at 14:41 Approved by: Adam Lopez M.D. on 07/08/2022 at 14:41
[2022-07-08 15:05] LABS: Influenza A - CEPHEID Flu A NEGATIVE (NEGATIVE); Influenza B - CEPHEID Flu B NEGATIVE (NEGATIVE); Respiratory Syncytial Virus Negative (Negative)
[2022-07-08 15:09] LABS: COVID-19 CEPHEID PCR (VTM/NP) Negative (Negative)
[2022-07-08 16:58] LABS: Add Manual Diff / Slide Review NO; Basophils Absolute Auto 100 /uL (0-100); Basophils Percent Auto 1.4 % (0-2); Eosinophils Absolute Auto 200 /uL (0-450); Hematocrit 36.8 % (36-46); Hemoglobin 12.3 g/dL (12.0-16.0); Lymphocytes Absolute Auto 2300 /uL (1100-4500); Lymphocytes Percent Auto 22.4 % (25-40); Mean Corpuscular HGB Conc 33.3 % (30-36); Mean Corpuscular Hemoglobin 28.6 PG (26-34); Mean Corpuscular Volume 85.7 fL (80-100); Monocytes Absolute Auto 500 /uL (0-900); Monocytes Percent Auto 5.2 % (3-14); Neutrophils Absolute Auto 6900 /uL (1500-7000); Platelet Count 305 X10^3/uL (150-400); Red Cell Distribution Width 13.3 % (11.6-14.8)
--- NOTE | 2022-07-08 16:58 | ED_ITS ---
HPI - URI/Sore Throat <Jarett Drew PA-C - Last Filed: 07/08/22 17:49> General Chief Complaint: Upper Respiratory Symptoms Stated Complaint: Nausea, fever, chills, vomiting Time Seen by Provider: 07/08/22 13:49 History of Present Illness HPI Narrative: Patient has a 21-year-old female who presents to the emergency room today with complaint of cough sore throat body aches migraine and nausea and vomiting for the past 3 days. States that she has roommates with another woman who has a child who had upper respiratory complaints that preceded her ears. Denies any chest pain or shortness of breath but is periodically fever and chills. Would also like a letter for work. Related Data Previous Rx's Medication Instructions Recorded hydrocodone 5 mg-acetaminophen 325 1 tab PO Q4-6H PRN pain #10 tabs 05/08/22 mg tablet ondansetron 4 mg disintegrating 4 mg PO TID-QID PRN nausea and 05/08/22 tablet vomiting #10 tabs doxycycline hyclate 100 mg capsule 100 mg PO BID #14 caps 06/22/22 Allergies Allergy/AdvReac Type Severity Reaction Status Date / Time amoxicillin Allergy Verified 05/14/22 09:37 bismuth subsalicylate Allergy Verified 05/14/22 09:37 [From Maalox Total Relief (bismuth)] cinnamon Allergy Verified 05/14/22 09:37 Penicillins Allergy Verified 05/07/22 20:17 Review of Systems <Jarett Drew PA-C - Last Filed: 07/08/22 17:49> Review of Systems Narrative: R.O.S.: General: No fever, chills or fatigue. Cardiovascular: No chest pain or palpitations Respiratory: Cough and sore throat HEENT: No congestion, ear pain, rhinorrhea, sore throat or tinnitus Gastrointestinal: Nausea and vomiting Skin: No rash or associated abnormalities Musculoskeletal: No pain in muscles or joints, no limitation of range of motion, no paresthesia or numbness. ?? Neurological: Awake, alert and in not apparent distress. No Headaches, changes in vision or other related neurological concerns. Patient History <TEJAL Fontana Last Filed: 07/08/22 17:49> Social History Smoking Status: Former smoker Smoking Status: Former smoker tobacco type: cigarettes and vaping alcohol intake frequency: holidays/special occasions only Substance Use Type: marijuana Exam <Jarett Drew PA-C - Last Filed: 07/08/22 17:49> Narrative Exam Narrative: Physical Exam: ? General: normal appearance, well developed, well nourished, alert, and awake. Not in acute distress. ? Head: Normocephalic, no lesions. Chest: Lungs CTAB, no rales, rhonchi or wheezes. ?? Heart: RRR, no murmurs, rubs or gallops. Eyes: PERRLA, EOM's full, conjunctivae clear. ? Neuro: Physiological, no localizing findings, CN3-12 intact. ?? Extremities: Warm, well perfused, FROM, no deformities, no edema. ?? Skin: Normal, no rashes, no lesions noted. ?? PSYCHIATRIC: The mood is good, no blunted affect. Speech is clear. Thought process is linear, thought content is appropriate. The voice is without significant inflection. Gastrointestinal: Soft; NT; ND; Pos BS with Neg. rebound tenderness. No scars or major deformities noted on Visual Inspection. Initial Vital Signs Initial Vital Signs: Vital Signs Temperature 96.6 F L 07/08/22 14:13 Pulse Rate 98 H 07/08/22 14:13 Respiratory Rate 20 07/08/22 14:13 Blood Pressure 125/91 H 07/08/22 14:13 Pulse Oximetry 96 07/08/22 14:13 Oxygen Delivery Method 07/08/22 14:13 <Priscila Crisostomo MD - Last Filed: 07/10/22 11:39> Initial Vital Signs Initial Vital Signs: Vital Signs Temperature 96.6 F L 07/08/22 14:13 Pulse Rate 98 H 07/08/22 14:13 Respiratory Rate 20 07/08/22 14:13 Blood Pressure 125/91 H 07/08/22 14:13 Pulse Oximetry 96 07/08/22 14:13 Oxygen Delivery Method 07/08/22 14:13 Course <Jarett Drew PA-C - Last Filed: 07/08/22 17:49> Orders Ordered: ED Orders 07/08/22 14:22 Covid-19 + FLU A/B + RSV - PCR Stat 07/08/22 14:24 Chest [XR chest 2V] Stat Respiratory Panel (Film Array) Stat 07/08/22 16:45 CBC Auto Diff [Complete Blood Count AUTO DIFF] Stat CMP [Comprehensive Metabolic Panel] Stat Vital Signs Vital signs: Vital Signs - 8 hr 07/08/22 14:13 Temperature 96.6 F L Pulse Rate 98 H Respiratory Rate 20 Blood Pressure 125/91 H Pulse Oximetry 96 Oxygen Delivery Method Room Air <Priscila Crisostomo MD - Last Filed: 07/10/22 11:39> Orders Ordered: ED Orders 07/08/22 14:22 Covid-19 + FLU A/B + RSV - PCR Stat 07/08/22 14:24 Chest [XR chest 2V] Stat Respiratory Panel (Film Array) Stat 07/08/22 16:45 CBC Auto Diff [Complete Blood Count AUTO DIFF] Stat CMP [Comprehensive Metabolic Panel] Stat Vital Signs Vital signs: Vital Signs - 8 hr 07/08/22 14:13 Temperature 96.6 F L Pulse Rate 98 H Respiratory Rate 20 Blood Pressure 125/91 H Pulse Oximetry 96 Oxygen Delivery Method Room Air MDM - URI/Sore Throat <Jarett Drew PA-C - Last Filed: 07/08/22 17:49> Lab Data Result diagrams: 07/08/22 16:45 07/08/22 16:45 Labs: Lab Results 07/08/22 07/08/22 07/08/22 Range/Units 14:22 16:45 16:45 WBC 10.0 (4.5-11.0) X10^3/uL RBC 4.30 (4.0-5.2) X10^6/uL Hgb 12.3 (12.0-16.0) g/dL Hct 36.8 (36-46) % MCV 85.7 (80-100) fL MCH 28.6 (26-34) PG MCHC 33.3 (30-36) % RDW 13.3 (11.6-14.8) % Plt Count 305 (150-400) X10^3/uL Neut % (Auto) 69.0 (50-75) % Lymph % (Auto) 22.4 L (25-40) % [place] % (Auto) 5.2 (3-14) % Eos % (Auto) 2.0 (2-4) % Baso % (Auto) 1.4 (0-2) % Neut # (Auto) 6900 (7933-3074) /uL Lymph # (Auto) 2300 (0111-6770) /uL [place] # (Auto) 500 (0-900) /uL Eos # (Auto) 200 (0-450) /uL Baso # (Auto) 100 (0-100) /uL Sodium 140 (137-145) mmol/L Potassium 4.1 (3.4-5.1) mmol/L Chloride 105 (98-107) mmol/L Carbon Dioxide 28 (22-32) mmol/L BUN 10 (7-17) mg/dL Creatinine 0.53 (0.52-1.04) mg/dL Estimated GFR > 60 (>60) mL/min BUN/Creatinine Ratio 18.9 (6-22) Glucose 89 (70-100) mg/dL Calcium 8.7 (8.4-10.2) mg/dL Total Bilirubin 0.3 (0.2-1.3) mg/dL AST 46 H (14-36) IU/L ALT 33 (<35) IU/L Alkaline Phosphatase 89 (38-126) U/L Total Protein 7.6 (6.3-8.2) g/dL Albumin 4.1 (3.5-5.0) g/dL Globulin 3.5 (1.7-4.1) g/dL Albumin/Globulin Ratio 1.2 (1.0-2.8) SARS-CoV-2 (PCR) Negative (Negative) Influenza A (RT-PCR) Flu a negative (NEGATIVE) Influenza B (RT-PCR) Flu b negative (NEGATIVE) RSV (PCR) Negative (Negative) Imaging Data Chest x-ray: Radiologist's Impression: PROCEDURE:? XR CHEST 2V ? INDICATIONS:? Respiratory Symptoms ? TECHNIQUE:? 2 views of the chest were acquired.? ? COMPARISON:? None. ? FINDINGS:? ? Surgical changes and devices:? None.? ? Lungs and pleura:? Lungs are clear.? No pleural effusions or pneumothorax.? ? Mediastinum:? Mediastinal contours are normal.? Heart size is normal.? ? Bones and chest wall:? No suspicious bony abnormalities.? Soft tissues appear unremarkable.? ? IMPRESSION:? No acute cardiopulmonary abnormality. ? ? ? Dictated by: Adam Roschmann, M.D. on 07/08/2022 at 14:41 ? ? Approved by: Adam Lopez M.D. on 07/08/2022 at 14:41 MDM Narrative Medical decision making narrative: Patient is a 21-year-old female who presents to the emergency room today with URI complaints to include nausea vomiting migraine started about 3 days ago. Chest was ordered and was negative. Respiratory panel strep throat so ordered with labs to rule out any acute emergent concerns. All lab results and diagnostic study these holes that were C were negative. Patient discharged and advised that she will be notified of any positive result of concern for discomfort. Provide also discussed UR related concerns to the patient and advised patient to return to emergency room if any emergent concerns arise. Patient agrees with plan. <Priscila Crisostomo MD - Last Filed: 07/10/22 11:39> Lab Data Labs: Lab Results 07/08/22 07/08/22 07/08/22 Range/Units 14:22 16:45 16:45 WBC 10.0 (4.5-11.0) X10^3/uL RBC 4.30 (4.0-5.2) X10^6/uL Hgb 12.3 (12.0-16.0) g/dL Hct 36.8 (36-46) % MCV 85.7 (80-100) fL MCH 28.6 (26-34) PG MCHC 33.3 (30-36) % RDW 13.3 (11.6-14.8) % Plt Count 305 (150-400) X10^3/uL Neut % (Auto) 69.0 (50-75) % Lymph % (Auto) 22.4 L (25-40) % [place] % (Auto) 5.2 (3-14) % Eos % (Auto) 2.0 (2-4) % Baso % (Auto) 1.4 (0-2) % Neut # (Auto) 6900 (8807-9146) /uL Lymph # (Auto) 2300 (4797-2097) /uL [place] # (Auto) 500 (0-900) /uL Eos # (Auto) 200 (0-450) /uL Baso # (Auto) 100 (0-100) /uL Sodium 140 (137-145) mmol/L Potassium 4.1 (3.4-5.1) mmol/L Chloride 105 (98-107) mmol/L Carbon Dioxide 28 (22-32) mmol/L BUN 10 (7-17) mg/dL Creatinine 0.53 (0.52-1.04) mg/dL Estimated GFR > 60 (>60) mL/min BUN/Creatinine Ratio 18.9 (6-22) Glucose 89 (70-100) mg/dL Calcium 8.7 (8.4-10.2) mg/dL Total Bilirubin 0.3 (0.2-1.3) mg/dL AST 46 H (14-36) IU/L ALT 33 (<35) IU/L Alkaline Phosphatase 89 (38-126) U/L Total Protein 7.6 (6.3-8.2) g/dL Albumin 4.1 (3.5-5.0) g/dL Globulin 3.5 (1.7-4.1) g/dL Albumin/Globulin Ratio 1.2 (1.0-2.8) SARS-CoV-2 (PCR) Negative (Negative) Influenza A (RT-PCR) Flu a negative (NEGATIVE) Influenza B (RT-PCR) Flu b negative (NEGATIVE) RSV (PCR) Negative (Negative) Discharge Plan Departure Patient Disposition: Home Clinical Impression: Upper respiratory infection Instructions: DI for Viral Upper Respiratory Infection -- Adult Activity Restrictions/Additional Instructions: *You have been diagnosed with a viral upper respiratory infection.? No chest film and labs results of the garment turner all negative.? We are awaiting some further results of those are positive will be returned to utilize the nail.? Suggest you continue to hydrate and take [id number] medications for cough and related URI symptoms.? Advised return to emergency room if any emergent concerns arise.? [ ] *What to do: ?? ? *Please continue to take your regular medications as directed. ? [ ] New medication prescriptions sent to your pharmacy: [ ] ? [ ] New medication written as a paper prescription ? [x] No new medications given *Please follow up with your primary care provider in 2-3 days, call for an appointment. Let them know you were seen in the Emergency Department and that we ask that you be seen in follow up. We will electronically transmit a record of today's note if your PCP is in our system *If you do not have a primary care provider please contact the [facility] Resource line at [phone]. They will ask some questions about your medical history and help get you set up with a doctor in the community. ? *Return to Emergency Department if you should have any new, worsening or concerning symptoms, such as [fever greater than 101 F, shaking chills, worsen ing pain, persistent vomiting or other bothersome symptoms] Prescriptions: No Action hydrocodone-acetaminophen 5-325 mg tablet 1 tab PO Q4-6H PRN (Reason: pain) Qty: 10 0RF ondansetron 4 mg tablet,disintegrating 4 mg PO TID-QID PRN (Reason: nausea and vomiting) Qty: 10 0RF doxycycline hyclate 100 mg capsule 100 mg PO BID Qty: 14 0RF Stand Alone Forms: Work Release Note Visit Report Forms: Patient Portal/API <Priscila Crisostomo MD - Last Filed: 07/10/22 11:39> [facility]: I was immediately available in the department for consultation throughout this patient's visit. I agree with documentation as above. Priscila Crisostomo MD
[2022-07-08 17:09] LABS: Alanine Aminotransferase 33 IU/L (<35); Albumin 4.1 g/dL (3.5-5.0); Albumin Globulin Ratio 1.2 (1.0-2.8); Alkaline Phosphatase 89 U/L (38-126); Aspartate Aminotransferase 46 IU/L (14-36); BUN Creatinine Ratio 18.9 (6-22); Bilirubin Total 0.3 mg/dL (0.2-1.3); Blood Urea Nitrogen 10 mg/dL (7-17); Calcium 8.7 mg/dL (8.4-10.2); Carbon Dioxide 28 mmol/L (22-32); Chloride 105 mmol/L (98-107); Estimated Glomerular Filt Rate > 60 mL/min (>60); Globulin 3.5 g/dL (1.7-4.1); Glucose 89 mg/dL (70-100); HEMOLYSIS < 15 (0-50); Potassium 4.1 mmol/L (3.4-5.1); Sodium 140 mmol/L (137-145); Total Protein 7.6 g/dL (6.3-8.2)
--- NOTE | 2022-07-08 17:27 | PC.NURSE ---
Provider aware unable to get valid results on rapid strep after multiple swabs and tests run.
[2022-07-08 17:57] VITALS: BP 103/61; PULSE 83; O2SAT 98
--- NOTE | 2022-07-08 18:10 | PC.NURSE ---
exam deferred to MORENA Drew.
== END 2022-07-08 18:10 | disposition home or self-care (01) ==
PROVIDERS: Emergency Provider Physician Assistant
DX: J06.9 Acute upper respiratory infection, unspecified (principal); R11.2 Nausea with vomiting, unspecified; Z20.822 Contact with and (suspected) exposure to COVID-19
CPT/HCPCS: 0241U; 36415; 71046; 80053; 85025; 99283; 99284

== ENCOUNTER 2022-07-29 14:38 | Emergency (ER) | payer SELFPAY ==
[2022-07-29 15:14] VITALS: BP 127/92; PULSE 88; RESP 18; TEMP 36.6; O2SAT 97
[2022-07-29] MEDS: ONDANSETRON 4 MG ODT SL (16:46)
== END 2022-07-29 19:54 | disposition left against medical advice (07) ==
PROVIDERS: Emergency Provider Emergency Medicine
DX: R11.2 Nausea with vomiting, unspecified (principal)
CPT/HCPCS: 81003; 81025; 99283

== ENCOUNTER 2023-01-15 11:45 | Emergency (ER) | payer SELFPAY ==
[2023-01-15 11:58] VITALS: BP 121/74; PULSE 108; RESP 20; TEMP 36.8; O2SAT 98; BMI 56.5
[2023-01-15] MEDS: ONDANSETRON 4 MG ODT SL (12:35)
[2023-01-15] MEDS: MECLIZINE HCL 12.5 MG TABLET 25 MG PO (12:35)
[2023-01-15] MEDS: LORazepam 2 MG/ML INJ 0.5 MG IV (13:46)
[2023-01-15] MEDS: ONDANSETRON 4 MG/2 ML INJ IV (13:46)
[2023-01-15] MEDS: SODIUM CHLORIDE 0.9% 1,000 ML 1000 ML IV (13:46)
[2023-01-15] MEDS: KETOROLAC 30 MG/ML VIAL 15 MG IV (13:47)
[2023-01-15 13:56] LABS: Add Manual Diff / Slide Review NO; Basophils Absolute Auto 100 /uL (0-100); Basophils Percent Auto 0.4 % (0-2); Eosinophils Absolute Auto 300 /uL (0-450); Eosinophils Percent Auto 1.5 % (2-4); Hematocrit 43.3 % (36-46); Hemoglobin 14.1 g/dL (12.0-16.0); Lymphocytes Absolute Auto 3700 /uL (1100-4500); Lymphocytes Percent Auto 21.1 % (25-40); Mean Corpuscular HGB Conc 32.5 % (30-36); Mean Corpuscular Hemoglobin 28.3 PG (26-34); Mean Corpuscular Volume 86.9 fL (80-100); Monocytes Absolute Auto 800 /uL (0-900); Monocytes Percent Auto 4.7 % (3-14); Neutrophils Absolute Auto 12600 /uL (1500-7000); Neutrophils Percent Auto 72.3 % (50-75); Platelet Count 389 X10^3/uL (150-400); Red Blood Cell Count 4.98 X10^6/uL (4.0-5.2); Red Cell Distribution Width 13.5 % (11.6-14.8); White Blood Cell Count 17.5 X10^3/uL (4.5-11.0)
--- NOTE | 2023-01-15 14:02 | DI.CT.S_ITS ---
PROCEDURE: CT MASTOID TEMPORAL INDICATIONS: L ruptured tympanum; ?mastoiditis TECHNIQUE: After the administration of intravenous contrast, 0.6 mm thick axial sections acquired through the temporal bones. Coronal images are reformatted. COMPARISON: None. FINDINGS: Image quality: Excellent. RIGHT: External auditory canal: Canal has a normal appearance. Middle ear: Middle ear structures, including the ossicles and tympanic membrane, appear normal. No abnormal fluid or soft tissues within the middle ear cavity. Inner ear: Inner ear is normally formed and appears unremarkable. Facial nerve appears normal throughout its course. Mastoids: Mastoid air cells are clear. LEFT: External auditory canal: There is generalized moderate to prominent thickening the lining of the left external auditory canal. Middle ear: Abnormal soft tissue density material can be seen within the left middle ear cavity, which is more prominent inferiorly. The tympanic membrane appears retracted. The middle ear ossicles do not demonstrate definite erosion. The scutum appears within normal limits. Inner ear: Inner ear is normally formed and appears unremarkable. Facial nerve appears normal throughout its course. Mastoids: Mastoid air cells are clear. MISCELLANEOUS: Visualized surrounding bones are unremarkable. Visualized intracranial structures, including the cerebellopontine angle cisterns, appear normal. No abnormal overlying soft tissue enhancement can be seen. IMPRESSION: No abnormal left mastoid air cell fluid can be seen. Abnormal fluid can be seen within the left middle ear cavity. There is a retracted tympanic membrane. These findings are consistent with otitis media. Thickening of the lining of the left external auditory canal seen, which is consistent with otitis externa. Dictated by: Aravind Robbins M.D. on 01/15/2023 at 14:02 Approved by: Aravind Robbins M.D. on 01/15/2023 at 14:05
[2023-01-15 14:05] LABS: Alanine Aminotransferase 62 IU/L (<35); Albumin 4.9 g/dL (3.5-5.0); Albumin Globulin Ratio 1.2 (1.0-2.8); Alkaline Phosphatase 98 U/L (38-126); Aspartate Aminotransferase 72 IU/L (14-36); BUN Creatinine Ratio 17.5 (6-22); Bilirubin Total 0.8 mg/dL (0.2-1.3); Blood Urea Nitrogen 10 mg/dL (7-17); Calcium 9.7 mg/dL (8.4-10.2); Carbon Dioxide 26 mmol/L (22-32); Chloride 101 mmol/L (98-107); Estimated Glomerular Filt Rate > 60 mL/min (>60); Globulin 4.2 g/dL (1.7-4.1); Glucose 91 mg/dL (70-100); HEMOLYSIS < 15 (0-50); Lipase 73 U/L (23-300); Potassium 4.1 mmol/L (3.4-5.1); Sodium 140 mmol/L (137-145); Total Protein 9.1 g/dL (6.3-8.2)
--- NOTE | 2023-01-15 14:07 | ED.EAR ---
HPI - Ear Problem <Christiana Rocha PA-C - Last Filed: 01/15/23 17:47> General Chief complaint: Ear Stated complaint: ear pain lip numb jaw swelling Time Seen by Provider: 01/15/23 13:38 Source: patient Mode of arrival: Wheelchair History of Present Illness HPI Narrative: 22-year-old female with a history of frequent ear infections since childhood presents to the ED with 2 days of left-sided ear pain. Patient states that she 1st felt a sharp pain 1 week ago that spontaneously subsided the same day. Patient states that she started experiencing acute left-sided ear pain yesterday, along with nausea. Patient complains of left-sided ear pain, jaw pain, pain all around the ear. Patient does complain of some dizziness. Patient states that while she was in the ED, she felt intense pressure in the left ear, followed by a popping sensation. Patient states that she has sensed some clear fluid from her ear canal. Patient states that she is unable to hear from the left ear since the popping. Patient denies fever, chills, chest pain, shortness of breath, dysphagia, throat swelling, vomiting, abdominal pain, lightheadedness, syncope. Patient appears anxious. Related Data Previous Rx's Medication Instructions Recorded doxycycline hyclate 100 mg tablet 100 mg PO BID 10 days #20 tabs 01/15/23 ofloxacin 0.3 % ear drops 5 drp EAR-LEFT BID 7 days #10 mL 01/15/23 Allergies Allergy/AdvReac Type Severity Reaction Status Date / Time amoxicillin Allergy Verified 01/15/23 13:42 bismuth subsalicylate Allergy Verified 01/15/23 13:42 [From Maalox Total Relief (bismuth)] cinnamon Allergy Verified 01/15/23 13:42 Penicillins Allergy Verified 01/15/23 13:42 Review of Systems <Christiana Rocha PA-C - Last Filed: 01/15/23 17:47> Review of Systems ROS Unobtainable: All systems reviewed & are unremarkable except as noted in HPI and below Constitutional Constitutional: Denies chills, Denies fatigue, Denies fever(s), Denies frequent falls, Denies lethargy and Denies weakness Eyes Eyes: Denies change in vision, Denies eye discharge, Denies irritation and Denies loss of vision ENT Ears, Nose, Mouth, and Throat: Denies change in voice, Reports dizziness, Reports ear discharge, Reports otalgia, Reports hearing loss, Denies neck pain, Denies sore throat and Denies throat swelling Cardiovascular Cardiovascular: Denies chest pain, Denies irregular heart rhythm, Denies lightheadedness, Denies palpitations, Denies dyspnea, Denies dyspnea on exertion and Denies orthopnea Respiratory Respiratory: Denies cough, Denies dyspnea, Denies dyspnea on exertion and Denies wheezing Gastrointestinal Gastrointestinal: Denies abdominal pain, Denies change in bowel habits, Denies diarrhea, Reports nausea and Denies vomiting Genitourinary Genitourinary: Denies hematuria, Denies flank pain, Denies urinary incontinence and Denies urinary urgency Musculoskeletal Musculoskeletal: Denies back pain, Denies muscle weakness, Denies neck pain, Denies numbness and Denies tingling Integumentary/Breasts Skin/Breast: Denies pruritus, Denies erythema, Denies rash and Denies wounds Neurologic Neurologic: Denies behavioral changes, Denies confusion, Reports dizziness, Denies frequent falls, Denies loss of vision, Denies numbness, Denies tingling and Denies weakness Psychiatric Psychiatric: Denies anxiety, Denies behavioral changes, Denies confusion, Denies depression, Denies homicidal ideation and Denies suicidal ideation Endocrine Endocrine: Denies fatigue, Denies flushing and Denies palpitations Hematologic/Lymphatic Hematologic/Lymphatic: Denies easy bruising Allergic/Immunologic Allergic/Immunologic: Denies urticaria, Denies throat swelling and Denies wheezing Patient History <Christiana Rocha PA-C - Last Filed: 01/15/23 17:47> Social History Smoking Status: Former smoker Smoking Status: Former smoker tobacco type: cigarettes alcohol intake frequency: holidays/special occasions only Substance Use Type: marijuana Exam <Christiana Rocha PA-C - Last Filed: 01/15/23 17:47> Narrative Exam Narrative: Const General:?cooperative, healthy appearing and comfortable [facility] Head:?normal to inspection Ears:? Right tympanum and R ear canal appears normal; left tympanum appears retracted; left ear canal appears inflamed. There is mastoid tenderness. Nose:?external nose normal Face and sinus:?normal facial exam and sinuses nontender Mouth:?oral mucosae normal Throat:?posterior oropharynx normal Eyes General:?appearance normal, both eyes and all related structures Neck Neck:?normal visual inspection and no lymphadenopathy noted Resp Effort & Inspection:?normal respiratory effort Auscultation:?clear to auscultation bilaterally Cardio Rate:?regular rate Rhythm:?regular rhythm Neuro General:?patient alert, patient awake and patient oriented x3 Initial Vital Signs Initial Vital Signs: Vital Signs Temperature 98.3 F 01/15/23 11:58 Pulse Rate 108 H 01/15/23 11:58 Respiratory Rate 20 01/15/23 11:58 Blood Pressure 121/74 01/15/23 11:58 Pulse Oximetry 98 01/15/23 11:58 Oxygen Delivery Method Room Air 01/15/23 11:58 <Mikayla Samuels DO - Last Filed: 01/18/23 08:45> Initial Vital Signs Initial Vital Signs: Vital Signs Temperature 98.3 F 01/15/23 11:58 Pulse Rate 108 H 01/15/23 11:58 Respiratory Rate 20 01/15/23 11:58 Blood Pressure 121/74 01/15/23 11:58 Pulse Oximetry 98 01/15/23 11:58 Oxygen Delivery Method Room Air 01/15/23 11:58 Course <Christiana Rocha PA-C - Last Filed: 01/15/23 17:47> Orders Ordered: Discontinued Medications Sodium Chloride (Normal Saline 0.9%) 1,000 mls @ 1,000 mls/hr IV BOLUS ONE Stop: 01/15/23 14:39 Last Infusion: 01/15/23 15:10 Dose: 0 mls/hr Documented By: Admin: 01/15/23 13:46 Dose: 1,000 mls/hr Documented By: DIXON Ketorolac Tromethamine (Ketorolac 30 Mg/Ml Vial) 15 mg IV NOW ONE Stop: 01/15/23 13:41 Last Admin: 01/15/23 13:47 Dose: 15 mg Documented By: DIXON Lorazepam (Lorazepam 2 Mg/Ml Inj) 0.5 mg IV NOW ONE Stop: 01/15/23 13:41 Last Admin: 01/15/23 13:46 Dose: 0.5 mg Documented By: DIXON Meclizine HCl (Meclizine Hcl 12.5 Mg Tablet) 25 mg PO NOW ONE Stop: 01/15/23 12:20 Last Admin: 01/15/23 12:35 Dose: 25 mg Documented By: AMU Morphine Sulfate (Morphine 4 Mg/Ml Inj) 4 mg IV NOW ONE Stop: 01/15/23 15:19 Last Admin: 01/15/23 15:30 Dose: 4 mg Documented By: DIONY Ondansetron HCl (Ondansetron 4 Mg Odt) 4 mg SL NOW ONE Stop: 01/15/23 12:20 Last Admin: 01/15/23 12:35 Dose: 4 mg Documented By: AMU Ondansetron HCl (Ondansetron 4 Mg/2 Ml Inj) 4 mg IV NOW PRN PRN Reason: Nausea And Vomiting Ondansetron HCl (Ondansetron 4 Mg/2 Ml Inj) 4 mg IV NOW ONE Stop: 01/15/23 13:42 Last Admin: 01/15/23 13:46 Dose: 4 mg Documented By: DIXON Vital Signs Vital signs: Vital Signs - 8 hr 01/15/23 11:58 01/15/23 16:13 Temperature 98.3 F Pulse Rate 108 H 90 Respiratory Rate 20 16 Blood Pressure 121/74 120/80 Pulse Oximetry 98 99 Oxygen Delivery Method Room Air Room Air <Mikayla Samuels DO - Last Filed: 01/18/23 08:45> Orders Ordered: Discontinued Medications Sodium Chloride (Normal Saline 0.9%) 1,000 mls @ 1,000 mls/hr IV BOLUS ONE Stop: 01/15/23 14:39 Last Infusion: 01/15/23 15:10 Dose: 0 mls/hr Documented By: Admin: 01/15/23 13:46 Dose: 1,000 mls/hr Documented By: DIXON Ketorolac Tromethamine (Ketorolac 30 Mg/Ml Vial) 15 mg IV NOW ONE Stop: 01/15/23 13:41 Last Admin: 01/15/23 13:47 Dose: 15 mg Documented By: DIXON Lorazepam (Lorazepam 2 Mg/Ml Inj) 0.5 mg IV NOW ONE Stop: 01/15/23 13:41 Last Admin: 01/15/23 13:46 Dose: 0.5 mg Documented By: DIXON Meclizine HCl (Meclizine Hcl 12.5 Mg Tablet) 25 mg PO NOW ONE Stop: 01/15/23 12:20 Last Admin: 01/15/23 12:35 Dose: 25 mg Documented By: AMU Morphine Sulfate (Morphine 4 Mg/Ml Inj) 4 mg IV NOW ONE Stop: 01/15/23 15:19 Last Admin: 01/15/23 15:30 Dose: 4 mg Documented By: DIONY Ondansetron HCl (Ondansetron 4 Mg Odt) 4 mg SL NOW ONE Stop: 01/15/23 12:20 Last Admin: 01/15/23 12:35 Dose: 4 mg Documented By: AMU Ondansetron HCl (Ondansetron 4 Mg/2 Ml Inj) 4 mg IV NOW PRN PRN Reason: Nausea And Vomiting Ondansetron HCl (Ondansetron 4 Mg/2 Ml Inj) 4 mg IV NOW ONE Stop: 01/15/23 13:42 Last Admin: 01/15/23 13:46 Dose: 4 mg Documented By: DIXON Vital Signs Vital signs: Vital Signs - 8 hr 01/15/23 11:58 01/15/23 16:13 Temperature 98.3 F Pulse Rate 108 H 90 Respiratory Rate 20 16 Blood Pressure 121/74 120/80 Pulse Oximetry 98 99 Oxygen Delivery Method Room Air Room Air Medical Decision Making <Christiana Rocha PA-C - Last Filed: 01/15/23 17:47> Lab Data 01/15/23 13:35 01/15/23 13:35 Labs: Lab Results 01/15/23 01/15/23 01/15/23 Range/Units 13:35 13:35 13:35 WBC 17.5 H (4.5-11.0) X10^3/uL RBC 4.98 (4.0-5.2) X10^6/uL Hgb 14.1 (12.0-16.0) g/dL Hct 43.3 (36-46) % MCV 86.9 (80-100) fL MCH 28.3 (26-34) PG MCHC 32.5 (30-36) % RDW 13.5 (11.6-14.8) % Plt Count 389 (150-400) X10^3/uL Neut % (Auto) 72.3 (50-75) % Lymph % (Auto) 21.1 L (25-40) % [place] % (Auto) 4.7 (3-14) % Eos % (Auto) 1.5 L (2-4) % Baso % (Auto) 0.4 (0-2) % Neut # (Auto) 03219 H (5163-8796) /uL Lymph # (Auto) 3700 (6993-8216) /uL [place] # (Auto) 800 (0-900) /uL Eos # (Auto) 300 (0-450) /uL Baso # (Auto) 100 (0-100) /uL Sodium 140 (137-145) mmol/L Potassium 4.1 (3.4-5.1) mmol/L Chloride 101 (98-107) mmol/L Carbon Dioxide 26 (22-32) mmol/L BUN 10 (7-17) mg/dL Creatinine 0.57 (0.52-1.04) mg/dL Estimated GFR > 60 (>60) mL/min BUN/Creatinine Ratio 17.5 (6-22) Glucose 91 (70-100) mg/dL Calcium 9.7 (8.4-10.2) mg/dL Total Bilirubin 0.8 (0.2-1.3) mg/dL AST 72 H (14-36) IU/L ALT 62 H (<35) IU/L Alkaline Phosphatase 98 (38-126) U/L Total Protein 9.1 H (6.3-8.2) g/dL Albumin 4.9 (3.5-5.0) g/dL Globulin 4.2 H (1.7-4.1) g/dL Albumin/Globulin Ratio 1.2 (1.0-2.8) Lipase 73 (23-300) U/L Serum , Qual Negative (Negative) MDM Narrative Medical decision making narrative: 22-year-old female with a history of frequent ear infections since childhood presents to the ED with 2 days of left-sided ear pain. Concern for ruptured tympanum versus otitis media versus mastoiditis versus cellulitis versus abscess versus other. Will obtain labs, CT mastoid. Will give meclizine, Zofran, ketorolac, Ativan, IV fluids. Patient's symptoms improved with medications. White count elevated to 17.5. CT scan without evidence of mastoiditis. CT scan does show signs of a left middle ear infection, a retracted tympanic membrane, otitis externa. Discussed findings with patient, prescribed antibiotics. Recommend ENT follow-up. ED return precautions were discussed with patient. Patient verbalized understanding. Medical records reviewed: Yes <Mikayla Samuels DO - Last Filed: 01/18/23 08:45> Lab Data Labs: Lab Results 01/15/23 01/15/23 01/15/23 Range/Units 13:35 13:35 13:35 WBC 17.5 H (4.5-11.0) X10^3/uL RBC 4.98 (4.0-5.2) X10^6/uL Hgb 14.1 (12.0-16.0) g/dL Hct 43.3 (36-46) % MCV 86.9 (80-100) fL MCH 28.3 (26-34) PG MCHC 32.5 (30-36) % RDW 13.5 (11.6-14.8) % Plt Count 389 (150-400) X10^3/uL Neut % (Auto) 72.3 (50-75) % Lymph % (Auto) 21.1 L (25-40) % [place] % (Auto) 4.7 (3-14) % Eos % (Auto) 1.5 L (2-4) % Baso % (Auto) 0.4 (0-2) % Neut # (Auto) 52299 H (9983-4421) /uL Lymph # (Auto) 3700 (4350-5601) /uL [place] # (Auto) 800 (0-900) /uL Eos # (Auto) 300 (0-450) /uL Baso # (Auto) 100 (0-100) /uL Sodium 140 (137-145) mmol/L Potassium 4.1 (3.4-5.1) mmol/L Chloride 101 (98-107) mmol/L Carbon Dioxide 26 (22-32) mmol/L BUN 10 (7-17) mg/dL Creatinine 0.57 (0.52-1.04) mg/dL Estimated GFR > 60 (>60) mL/min BUN/Creatinine Ratio 17.5 (6-22) Glucose 91 (70-100) mg/dL Calcium 9.7 (8.4-10.2) mg/dL Total Bilirubin 0.8 (0.2-1.3) mg/dL AST 72 H (14-36) IU/L ALT 62 H (<35) IU/L Alkaline Phosphatase 98 (38-126) U/L Total Protein 9.1 H (6.3-8.2) g/dL Albumin 4.9 (3.5-5.0) g/dL Globulin 4.2 H (1.7-4.1) g/dL Albumin/Globulin Ratio 1.2 (1.0-2.8) Lipase 73 (23-300) U/L Serum , Qual Negative (Negative) Discharge Plan Departure Patient Disposition: Home Clinical Impression: Otitis media, Otitis externa Instructions: Middle Ear Infection, DI for Otitis Externa Activity Restrictions/Additional Instructions: You were evaluated in the ED today for left-sided ear pain. Your CT scan shows that you have a external and middle ear infection in the left ear. Your eardrum does not appear to have ruptured. You are being started on antibiotics for the infection. Please take the antibiotics as prescribed. Please follow-up with your primary care doctor in 3-5 days. Please also follow-up with an ENT for further evaluation of the frequent ear infections. Return to the ED if your symptoms worsen, you develop fever, chills, nausea, vomiting, worsening pain. Prescriptions: New doxycycline hyclate 100 mg tablet 100 mg PO BID 10 Days Qty: 20 0RF ofloxacin 0.3 % drops 5 drp EAR-LEFT BID 7 Days Qty: 10 0RF Referrals: Miscellaneous,Doctor, MD [Primary Care Provider] - Stand Alone Forms: Patient Portal/API <Mikayla Samuels DO - Last Filed: 01/18/23 08:45> Cosign ED Attending Cosjonnaature Attestation: I was immediately available in the department for consultation.
[2023-01-15 14:09] LABS: Pregnancy Test Serum,Qual Negative (Negative)
[2023-01-15] MEDS: MORPHINE 4 MG/ML INJ IV (15:30)
[2023-01-15 16:13] VITALS: BP 120/80; PULSE 90; RESP 16; O2SAT 99
== END 2023-01-15 16:09 | disposition home or self-care (01) ==
PROVIDERS: Emergency Provider Student in an Organized Health Care Education/Training Program
DX: H60.92 Unspecified otitis externa, left ear (principal); H66.92 Otitis media, unspecified, left ear
CPT/HCPCS: 36415; 70480; 80053; 83690; 84703; 85025; 96361; 96374; 96375; 99284; J1885; J2060; J2270; J2405; Q9967

== ENCOUNTER 2023-01-26 10:35 | Emergency (ER) | payer SELFPAY ==
[2023-01-26 10:39] VITALS: PULSE 93; O2SAT 97
[2023-01-26 10:40] VITALS: BP 121/79; PULSE 94; O2SAT 97
[2023-01-26 10:41] VITALS: BP 121/79; PULSE 90; RESP 24; TEMP 36.9; O2SAT 97; BMI 58.2
[2023-01-26 11:00] VITALS: PULSE 91; O2SAT 97
--- NOTE | 2023-01-26 11:24 | ED_ITS ---
HPI - General Adult General Chief complaint: Ear Stated complaint: L Ear Pain, Dizziness, Vomiting Time Seen by Provider: 01/26/23 11:24 Source: patient and EMS Mode of arrival: EMS History of Present Illness HPI narrative: Patient is a 22-year-old female who is here for evaluation of left ear pain and dizziness. States she was seen here in the emergency department approximately 1 week ago for similar symptoms. Was diagnosed with both an inner and outer ear infection. Was given oral antibiotics and also ear drops. She states she was able to leaf size picker the oral antibiotics but the eardrops were too expensive. She thought things were improving however this morning she had increasing pain in her left ear and dizziness. No drainage from the ear. Does have pain down the outside of her neck. Related Data Previous Rx's Medication Instructions Recorded [id number]-iwyqrcorg-wraratxvo 3.5 4 drp EAR-LEFT QID 7 days #10 mL 01/26/23 mg-10,000 unit/mL-1 % ear drops,susp Allergies Allergy/AdvReac Type Severity Reaction Status Date / Time amoxicillin Allergy Verified 01/26/23 10:44 bismuth subsalicylate Allergy Verified 01/26/23 10:44 [From Maalox Total Relief (bismuth)] cinnamon Allergy Verified 01/26/23 10:44 Penicillins Allergy Verified 01/26/23 10:44 Review of Systems Constitutional Constitutional: Reports system reviewed and no additional complaints, except as documented ENT Ears, Nose, Mouth, and Throat: Reports system reviewed and no additional complaints, except as documented Respiratory Respiratory: Reports system reviewed and no additional complaints, except as documented Integumentary/Breasts Skin/Breast: Reports system reviewed and no additional complaints, except as documented Allergic/Immunologic Allergic/Immunologic: Reports system reviewed and no additional complaints, except as documented Patient History Social History Smoking Status: Former smoker Smoking Status: Former smoker tobacco type: cigarettes alcohol intake frequency: holidays/special occasions only Substance Use Type: marijuana Exam Initial Vital Signs Initial Vital Signs: Vital Signs Temperature 98.5 F 01/26/23 10:41 Pulse Rate 90 01/26/23 10:41 Respiratory Rate 24 01/26/23 10:41 Blood Pressure 121/79 01/26/23 10:41 Pulse Oximetry 97 01/26/23 10:41 Oxygen Delivery Method Room Air 01/26/23 10:41 Const General: cooperative and healthy appearing HENMT Ears: TM normal on the right and EAC abnormal erythema on the left, edema on the left, EAC tenderness on the left and other (Very small pathway to see a very small portion of the TM) Resp Effort & Inspection: normal respiratory effort Skin General: no rashes or lesions noted Neuro General: patient alert and patient awake Course Vital Signs Vital signs: Vital Signs - 8 hr 01/26/23 10:41 Temperature 98.5 F Pulse Rate 90 Respiratory Rate 24 Blood Pressure 121/79 Pulse Oximetry 97 Oxygen Delivery Method Room Air Medical Decision Making MDM Narrative Medical decision making narrative: Patient does have physical exam that is consistent with left-sided otitis externa. The right external auditory canal and TM are unremarkable. The left- sided external auditory canal does have a very small pathway back to the left tympanic membrane but it is very much obscured by the swelling. Patient does require a ear drops. The ofloxacin was too expensive so we will switch her to polymyxin B. Consider putting in an ear wick however if she starts the eardrops today after she picks them up I do feel that they would be able to get to the back of the ear. She would quite a bit of discomfort and I feel that putting in an ear wick would be more uncomfortable for her the current state. She can take Tylenol ibuprofen for discomfort. She was given return precautions. She expressed understanding and agreement. Discharge Plan Departure Patient Disposition: Home Clinical Impression: Otitis externa Instructions: How to Instill Ear Drops Activity Restrictions/Additional Instructions: It is important that you use the eardrops as this is the way the infection in your ear canal was going to be treated. Contact your primary doctor for follow- up. Return to the emergency department for new symptoms. Prescriptions: New [id number] 3.5-10,000-1 mg/mL-unit/mL-% drops,suspension 4 drp EAR-LEFT QID 7 Days Qty: 10 1RF Referrals: Miscellaneous,DoctorMD [Primary Care Provider] - Stand Alone Forms: Patient Portal/API
[2023-01-26 11:30] VITALS: PULSE 96; O2SAT 96
[2023-01-26 11:31] VITALS: BP 123/82; PULSE 93; O2SAT 95
== END 2023-01-26 11:40 | disposition home or self-care (01) ==
PROVIDERS: Emergency Provider Emergency Medicine
DX: H60.92 Unspecified otitis externa, left ear (principal); R42 Dizziness and giddiness
CPT/HCPCS: 99281

== ENCOUNTER 2023-04-26 21:11 | Emergency (ER) | payer SELFPAY ==
--- NOTE | 2023-04-26 | DI.CT.S_ITS ---
PROCEDURE: CT CHEST WO CON INDICATIONS: CHEST PAIN, MEDIASTINUM INJURY/FREE AIR TECHNIQUE: Noncontrast 5 mm thick sections acquired from the pulmonary apices to the posterior costophrenic angles. 1 mm lung window, 5 mm thick coronal and sagittal and 7 mm axial MIP reformats were then acquired. For radiation dose reduction, the following was used: automated exposure control, adjustment of mA and/or kV according to patient size. COMPARISON: None. FINDINGS: Image quality: Excellent. Lungs and pleura: A 5 mm pulmonary nodule is present within the superior segment of the right lower lobe (series 3/image 194). No other suspicious pulmonary nodules. No acute airspace opacities. No pleural effusion or pneumothorax. Mediastinum: Heart size is normal. No pericardial effusion. No mediastinal adenopathy by size criteria. Thoracic aorta and central pulmonary arteries are normal in size. Esophagus is normal in caliber. No hiatal hernia. Bones and chest wall: No suspicious bony lesions. No vertebral body compression fractures from C3 through the thoracic spine. No axillary or supraclavicular adenopathy by size criteria. Thyroid gland is unremarkable . Abdomen: The liver is diffusely hypodense suggesting fatty infiltration. Visualized upper abdominal solid organs and bowel loops appear otherwise normal in the absence of contrast. IMPRESSION: 1. No acute pulmonary findings. 2. 5 mm right lower lobe pulmonary nodule. Optional [address] follow-up recommended in a high-risk patient. Please see follow-up guidelines below. 3. Hepatic steatosis. Fleischner Society criteria for SOLID lung nodule followup. Nodule size (mm)Low-risk patientHigh-risk patient<6 (single or multiple)No routine followup.Optional CT at 12 months. 6-8 (single or multiple)CT at 6-12 months, then optional CT at 18-24 mo.CT at 6-12 months, then CT at 18-24 months. >8 (single)CT at 3 months, PET-CT, or biopsy. Same as for low-risk pts. >8 (multiple)CT at 3-6 months, then optional CT at 18-24 mo.CT at 3-6 months, then CT at 18-24 months. Fleischner Society criteria for SUB-SOLID lung nodule followup. Solitary pure ground-glass nodules<6 mm (ground glass or part solid)No followup needed. 6 mm or larger (ground glass)CT at 6-12 months to confirm persistence, then CT every 2 years until 5 years.6 mm or larger (part solid)CT at 3-6 months to confirm persistence, then annual CT until 5 years if unchanged and solid component remains <6 mm. Multiple sub-solid nodules<6 mmCT at 3-6 months, then CT consider at 2 & 4 years for high risk patients. [address] at 3-6 months. Subsequent management based on most suspicious lesions. Recommendations do not apply to lung cancer screening, patients with immunosuppression, or patients with known primary cancer. Dictated by: Ce Mejia M.D. on 04/26/2023 at 22:34 Approved by: Ce Mejia M.D. on 04/26/2023 at 22:38
[2023-04-26 21:21] VITALS: BP 138/93; PULSE 90; RESP 20; TEMP 36.4; O2SAT 97; BMI 58.2
[2023-04-26 21:38] LABS: Add Manual Diff / Slide Review NO; Basophils Absolute Auto 100 /uL (0-100); Basophils Percent Auto 0.7 % (0-2); Eosinophils Absolute Auto 200 /uL (0-450); Eosinophils Percent Auto 2.2 % (2-4); Hematocrit 38.7 % (36-46); Hemoglobin 12.8 g/dL (12.0-16.0); Lymphocytes Absolute Auto 2800 /uL (1100-4500); Lymphocytes Percent Auto 26.1 % (25-40); Mean Corpuscular HGB Conc 33.2 % (30-36); Mean Corpuscular Hemoglobin 28.9 PG (26-34); Mean Corpuscular Volume 86.9 fL (80-100); Monocytes Absolute Auto 600 /uL (0-900); Monocytes Percent Auto 5.3 % (3-14); Neutrophils Absolute Auto 7100 /uL (1500-7000); Neutrophils Percent Auto 65.7 % (50-75); Platelet Count 330 X10^3/uL (150-400); Red Blood Cell Count 4.45 X10^6/uL (4.0-5.2); Red Cell Distribution Width 13.6 % (11.6-14.8); White Blood Cell Count 10.8 X10^3/uL (4.5-11.0)
[2023-04-26 21:45] LABS: INR 1.1 (0.9-1.3); Prothrombin Time 12.9 SECONDS (10.1-12.7)
[2023-04-26 21:47] LABS: PTT Partial Thromboplastin Tim 37 SECONDS (26-36)
[2023-04-26 21:48] LABS: Alanine Aminotransferase 45 IU/L (<35); Albumin 4.3 g/dL (3.5-5.0); Albumin Globulin Ratio 1.2 (1.0-2.8); Alkaline Phosphatase 101 U/L (38-126); Aspartate Aminotransferase 55 IU/L (14-36); Bilirubin Total 0.7 mg/dL (0.2-1.3); Blood Urea Nitrogen 11 mg/dL (7-17); Calcium 9.1 mg/dL (8.4-10.2); Carbon Dioxide 25 mmol/L (22-32); Chloride 103 mmol/L (98-107); Creatine Kinase 37 U/L (30-135); Estimated Glomerular Filt Rate > 60 mL/min (>60); Globulin 3.5 g/dL (1.7-4.1); Glucose 102 mg/dL (70-100); HEMOLYSIS < 15 (0-50); Lipase 127 U/L (23-300); Magnesium 1.9 mg/dL (1.6-2.3); Potassium 3.8 mmol/L (3.4-5.1); Sodium 138 mmol/L (137-145); Total Protein 7.8 g/dL (6.3-8.2)
[2023-04-26 22:00] LABS: Troponin I < 0.012 ng/mL (0.01-0.034)
== END 2023-04-26 23:47 | disposition left against medical advice (07) ==
PROVIDERS: Emergency Provider Emergency Medicine
DX: R07.89 Other chest pain (principal); R05.9 Cough, unspecified
CPT/HCPCS: 71250; 80053; 82550; 83690; 83735; 84484; 85025; 85610; 85730; 93005; 99281